=== PATIENT | female | born 1975 | race Caucasian/White ===

== ENCOUNTER 2016-12-06 09:41 | Emergency (ER) | payer SELFPAY ==
--- NOTE | 2016-12-06 10:27 | ER Document Report ---
ED Medical Screen (RME) - General Chief Complaint: Abdominal Pain Stated Complaint: ABDOMINAL PAIN Notes: Patient presents at 8 months of progressively worsening right lower abdominal pain and right flank pain. Notes intermittent vaginal bleeding. No history of similar symptoms prior to last a month. She has not seen her primary doctor regarding today's concerns. Denies any associated nausea, vomiting or diaphoresis. No diarrhea. She is status post tubal ligation and has had an ovarian cyst removed on her left side of the past I have greeted and performed a rapid initial assessment of this patient. A comprehensive ED assessment and evaluation of the patient, analysis of test results and completion of medical decision making process will be conducted by an additional ED providers. TRAVEL OUTSIDE OF THE [place] IN LAST 30 DAYS: No - Related Data Allergies/Adverse Reactions: No Known Allergies Allergy (Verified 12/06/16 09:55) Past Medical History - Social History Frequency of alcohol use: Occasional Drug Abuse: None Renal/ Medical History: Reports: Hx Kidney Stones, Hx Ovarian Cysts - x1 right sided. Denies: Hx Peritoneal Dialysis Past Surgical History: Reports: Hx Gynecologic Surgery - ovarian cyst, Hx Tubal Ligation - Immunizations Immunizations up to date: Yes Hx Diphtheria, Pertussis, Tetanus Vaccination: Yes Physical Exam - Vital signs Vitals: Temp Pulse Resp BP Pulse Ox 98.1 F 110 H 18 151/83 H 100 12/06/16 09:54 12/06/16 09:54 12/06/16 09:54 12/06/16 09:54 12/06/16 09:54 Notes: PHYSICAL EXAMINATION: GENERAL: Well-appearing, well-nourished and in no acute distress. HEAD: Atraumatic, normocephalic. EYES: sclera anicteric, conjunctiva are normal. ENT: Moist mucous membranes. NECK: Normal range of motion LUNGS: Normal work of breathing HEART: 2+ radial pulses bilaterally EXTREMITIES: no pitting or edema. No cyanosis. NEUROLOGICAL: No focal neurological deficits. Moves all extremities spontaneously and on command. PSYCH: Normal mood, normal affect. SKIN: Warm, Dry, normal turgor, no rashes or lesions noted. Course - Vital Signs Vital signs: Temp Pulse Resp BP Pulse Ox 98.1 F 110 H 18 151/83 H 100 12/06/16 09:54 12/06/16 09:54 12/06/16 09:54 12/06/16 09:54 12/06/16 09:54
[2016-12-06 11:02] LABS: HEMATOCRIT 37.4 % (36.0-47.0); HEMOGLOBIN 12.4 g/dL (12.0-15.5); HGB HCT DIFFERENCE -0.2; MEAN CORPUSCULAR HEMOGLOBIN 26.7 pg (27.0-33.4); MEAN CORPUSCULAR HGB CONC 33.2 g/dL (32.0-36.0); MEAN CORPUSCULAR VOLUME 81 fl (80-97); RED BLOOD COUNT 4.64 10^6/uL (3.72-5.28); RED CELL DISTRIBUTION WIDTH 14.9 % (11.5-14.0); WHITE BLOOD COUNT 7.8 10^3/uL (4.0-10.5)
[2016-12-06 11:22] LABS: ALANINE AMINOTRANSFERASE 20 U/L (9-52); ALBUMIN 4.4 g/dL (3.5-5.0); ALKALINE PHOSPHATASE 70 U/L (38-126); ANION GAP 12 (5-19); ASPARTATE AMINO TRANSFERASE 25 U/L (14-36); BILIRUBIN,DIRECT 0.3 mg/dL (0.0-0.4); BILIRUBIN,TOTAL 1.2 mg/dL (0.2-1.3); BLOOD UREA NITROGEN 12 mg/dL (7-20); CALCIUM 9.4 mg/dL (8.4-10.2); CARBON DIOXIDE 25 mmol/L (22-30); CHLORIDE 103 mmol/L (98-107); CREATININE RESULT 0.85 mg/dL (0.52-1.25); GLUCOSE 102 mg/dL (75-110); POTASSIUM 4.2 mmol/L (3.6-5.0); SODIUM 140.3 mmol/L (137-145); TOTAL PROTEIN 7.7 g/dL (6.3-8.2)
[2016-12-06] MEDS ORDERED: LIDOCAINE 5% (700 MG) TRANSDERMAL ADH..PATCH TP ONE (11:59)
[2016-12-06] MEDS ORDERED: DICYCLOMINE HCL 20 MG TABLET PO ONE (11:59)
--- NOTE | 2016-12-06 12:24 | ER Document Report ---
ED General - General Chief Complaint: Abdominal Pain Stated Complaint: ABDOMINAL PAIN TRAVEL OUTSIDE OF THE [place] IN LAST 30 DAYS: No - HPI Patient complains to provider of: abdominal pain Notes: Patient coming in for left lower quadrant abdominal pain ongoing for approximately last 8 months. Patient has also had intermittent vaginal bleeding. Patient states that the to do seem to correlate that she'll have pain and later have vaginal bleeding. Patient states she is to have an HEART NURSE however does not have one at this time. Patient denies any trauma denies any fevers chills nausea vomiting diarrhea. - Related Data Allergies/Adverse Reactions: No Known Allergies Allergy (Verified 12/06/16 09:55) Past Medical History - Social History Smoking Status: Never Smoker Frequency of alcohol use: Occasional Drug Abuse: None Family History: Reviewed & Not Pertinent Patient has suicidal ideation: No Patient has homicidal ideation: No Renal/ Medical History: Reports: Hx Kidney Stones, Hx Ovarian Cysts - x1 right sided. Denies: Hx Peritoneal Dialysis Past Surgical History: Reports: Hx Gynecologic Surgery - ovarian cyst, Hx Tubal Ligation - Immunizations Immunizations up to date: Yes Hx Diphtheria, Pertussis, Tetanus Vaccination: Yes Review of Systems - Review of Systems Constitutional: No symptoms reported EENT: No symptoms reported Cardiovascular: No symptoms reported Respiratory: No symptoms reported Gastrointestinal: Abdominal pain Genitourinary: No symptoms reported Female Genitourinary: No symptoms reported Musculoskeletal: No symptoms reported Skin: No symptoms reported Hematologic/Lymphatic: No symptoms reported Neurological/Psychological: No symptoms reported Physical Exam - Vital signs Vitals: Temp Pulse Resp BP Pulse Ox 98.1 F 110 H 18 151/83 H 100 12/06/16 09:54 12/06/16 09:54 12/06/16 09:54 12/06/16 09:54 12/06/16 09:54 Interpretation: Normal - General General appearance: Appears well, Alert - HEENT Head: Normocephalic, Atraumatic Eyes: Normal Pupils: PERRL - Respiratory Respiratory status: No respiratory distress Chest status: Nontender Breath sounds: Normal Chest palpation: Normal - Cardiovascular Rhythm: Regular Heart sounds: Normal auscultation Murmur: No - Abdominal Inspection: Normal Distension: No distension Bowel sounds: Normal Tenderness: Nontender Organomegaly: No organomegaly - Back Back: Normal, Nontender - Extremities General upper extremity: Normal inspection, Nontender, Normal color, Normal ROM , Normal temperature General lower extremity: Normal inspection, Nontender, Normal color, Normal ROM , Normal temperature, Normal weight bearing. No: Krystle's sign - Neurological Neuro grossly intact: Yes Cognition: Normal Orientation: AAOx4 [place] Coma Scale Eye Opening: Spontaneous [place] Coma Scale Verbal: Oriented [place] Coma Scale Motor: Obeys Commands Me[place]io Coma Scale Total: 15 Speech: Normal Motor strength normal: LUE, RUE, LLE, RLE Sensory: Normal - Psychological Associated symptoms: Normal affect, Normal mood - Skin Skin Temperature: Warm Skin Moisture: Dry Skin Color: Normal Course - Re-evaluation Re-evalutation: 12/06/16 15:19 : The patient presents with abdominal pain without signs of peritonitis or other life-threatening or serious etiology. The patient appears stable for discharge and has been instructed to return immediately if the symptoms worsen in any way, or in 8-12hr if not improved for re-evaluation. The patient has been instructed to return if the symptoms worsen or change in any way.. - Vital Signs Vital signs: Temp Pulse Resp BP Pulse Ox 97.7 F 65 16 114/83 100 12/06/16 13:39 12/06/16 13:39 12/06/16 13:39 12/06/16 13:39 12/06/16 13:39 - Laboratory Result Diagrams: 12/06/16 10:40 12/06/16 10:40 Laboratory results interpreted by me: 12/06/16 12/06/16 10:40 10:42 MCH 26.7 L RDW 14.9 H Lipase 331.2 H Discharge - Discharge Clinical Impression: Abdominal pain Qualifiers: Abdominal location: unspecified location Qualified Code(s): R10.9 - Unspecified abdominal pain Condition: Good Disposition: HOME, SELF-CARE Instructions: Abdominal Pain ([facility]), [employer] Doctors Additional Instructions: Take medication as prescribed. If he did receive good pain relief with the Lidoderm patch and ask her pharmacist about [id number] option. Prescriptions: Dicyclomine HCl [Bentyl 20 mg Tablet] 20 mg PO QID PRN #20 tablet PRN Reason: Forms: Return to Work
[2016-12-06 13:41] VITALS: BP 114/83
== END 2016-12-06 13:42 | disposition home or self-care (01) ==
LOC: ER 09:41
DX: R10.32 Left lower quadrant pain (principal); N93.9 Abnormal uterine and vaginal bleeding, unspecified; Z87.442 Personal history of urinary calculi; Z87.42 Personal history of other diseases of the female genital tract; Z98.51 Tubal ligation status
CPT/HCPCS: 99284; 36415; 83690; 84703; 85027; 80053; J3490

== ENCOUNTER 2016-12-07 06:23 | Emergency (ER) | payer SELFPAY ==
[2016-12-07] MEDS ORDERED: HYDROCODONE/ACETAMINOPHEN 5-325 MG TABLET PO ONE (06:50)
[2016-12-07] MEDS ORDERED: ONDANSETRON 4 MG TAB.RAPDIS PO ONE (06:50)
--- NOTE | 2016-12-07 06:51 | ER Document Report ---
ED General - General Chief Complaint: Abdominal Pain Stated Complaint: ABDOMINAL PAIN Mode of Arrival: Ambulatory Information source: Patient Notes: 41-year-old female presents with complaints of left lower quadrant abdominal pain intermittently over the past 8 months. Patient notes she was seen here yesterday have blood work performed. Patient admits to history of ovarian cysts. Patient also admits to diarrhea as well as vaginal bleeding TRAVEL OUTSIDE OF THE [place] IN LAST 30 DAYS: No - HPI Onset: Other Onset/Duration: Intermittent Quality of pain: Achy Severity: Mild Pain Level: 1 Associated symptoms: Diarrhea, Other Exacerbated by: Denies Relieved by: Denies Similar symptoms previously: Yes Recently seen / treated by doctor: Yes - Related Data Allergies/Adverse Reactions: No Known Allergies Allergy (Verified 12/07/16 06:28) Past Medical History - Social History Smoking Status: Never Smoker Cigarette use (# per day): No Chew tobacco use (# tins/day): No Smoking Education Provided: No Family History: Reviewed & Not Pertinent Renal/ Medical History: Reports: Hx Kidney Stones, Hx Ovarian Cysts - x1 right sided, Hx Peritoneal Dialysis Past Surgical History: Reports: Hx Gynecologic Surgery - ovarian cyst, Hx Tubal Ligation - Immunizations Immunizations up to date: Yes Hx Diphtheria, Pertussis, Tetanus Vaccination: Yes Review of Systems - Review of Systems Notes: REVIEW OF SYSTEMS: CONSTITUTIONAL : Denies fever, chills, or sweats. Denies recent illness. EENT: Denies eye, ear, throat, or mouth pain or symptoms. Denies nasal or sinus congestion or discharge. Denies throat, tongue, or mouth swelling or difficulty swallowing. CARDIOVASCULAR: Denies chest pain. Denies palpitations or racing or irregular heart beat. Denies ankle edema. RESPIRATORY: Denies cough, cold, or chest congestion. Denies shortness of breath, difficulty breathing, or wheezing. GASTROINTESTINAL: admits ot diarrhea, llq pain GENITOURINARY: Denies difficulty urinating, painful urination, burning, frequency, blood in urine, or discharge. FEMALE GENITOURINARY: Admits to vaginal bleeding. MUSCULOSKELETAL: Denies back or neck pain or stiffness. Denies joint pain or swelling. SKIN: Denies rash, lesions or sores. HEMATOLOGIC : Denies easy bruising or bleeding. LYMPHATIC: Denies swollen, enlarged glands. NEUROLOGICAL: Denies confusion or altered mental status. Denies passing out or loss of consciousness. Denies dizziness or lightheadedness. Denies headache. Denies weakness or paralysis or loss of use of either side. Denies problems with gait or speech. Denies sensory loss, numbness, or tingling. Denies seizures. PSYCHIATRIC: Denies anxiety or stress. Denies depression, suicidal ideation, or homicidal ideation. ALL OTHER SYSTEMS REVIEWED AND NEGATIVE. Dictation was performed using [employer] voice recognition software PHYSICAL EXAMINATION: GENERAL: Well-appearing, well-nourished and in no acute distress. HEAD: Atraumatic, normocephalic. EYES: Pupils equal round and reactive to light, extraocular movements intact, conjunctiva are normal. ENT: Nares patent, oropharynx clear without exudates. Moist mucous membranes. NECK: Normal range of motion, supple without lymphadenopathy LUNGS: Breath sounds clear to auscultation bilaterally and equal. No wheezes rales or rhonchi. HEART: Regular rate and rhythm without murmurs ABDOMEN: Mild tenderness left lower quadrant Female : deferred Musculoskeletal: Normal range of motion, no pitting or edema. No cyanosis. NEUROLOGICAL: Cranial nerves grossly intact. Normal speech, normal gait. Normal sensory, motor exams PSYCH: Normal mood, normal affect. SKIN: Warm, Dry, normal turgor, no rashes or lesions noted. Physical Exam - Vital signs Vitals: Temp Pulse Resp BP Pulse Ox 97.3 F 71 21 H 118/96 H 100 12/07/16 06:29 12/07/16 06:29 12/07/16 06:29 12/07/16 06:29 12/07/16 06:29 Course - Re-evaluation Re-evalutation: 12/07/16 06:58 Patient's lab work from yesterday noted mild lipase elevation however patient's pain is in the left lower quadrant, left upper, CT has been ordered, urinalysis is pending 12/07/16 08:30 CT is consistent with colitis, I will give the patient antibiotics and follow- up with GI After performing a Medical Screening Examination, I estimate there is LOW risk for ACUTE APPENDICITIS, BOWEL OBSTRUCTION, ACUTE CHOLECYSTITIS, PERFORATED DIVERTICULITIS, INCARCERATED HERNIA, PANCREATITIS, PELVIC INFLAMMATORY DISEASE, PERFORATED ULCER, ECTOPIC , or TUBO-OVARIAN ABSCESS, thus I consider the discharge disposition reasonable. Also, there is no evidence or peritonitis , sepsis, or toxicity. I have reevaluated this patient multiple times and no significant life threatening changes are noted. The patient and I have discussed the diagnosis and risks, and we agree with discharging home with close follow-up with the understanding that symptoms and presentations can change. We also discussed returning to the Emergency Department immediately if new or worsening symptoms occur. We have discussed the symptoms which are most concerning (e.g., bloody stool, fever, changing or worsening pain, vomiting) that necessitate immediate return. - Vital Signs Vital signs: Temp Pulse Resp BP Pulse Ox 97.3 F 73 21 H 118/96 H 100 12/07/16 06:29 12/07/16 06:29 12/07/16 06:29 12/07/16 06:29 12/07/16 06:29 - Laboratory Result Diagrams: 12/07/16 06:55 12/07/16 06:55 Laboratory results interpreted by me: 12/07/16 12/07/16 06:55 06:55 WBC 11.0 H MCH 26.7 L RDW 14.8 H Seg Neutrophils % 92.7 H Lymphocytes % 5.1 L Monocytes % 2.0 L Absolute Neutrophils 10.2 H Carbon Dioxide 20 L Glucose 180 H - Diagnostic Test Radiology reviewed: Image reviewed, Reports reviewed Discharge - Discharge Clinical Impression: Colitis Abdominal pain Qualifiers: Abdominal location: unspecified location Qualified Code(s): R10.9 - Unspecified abdominal pain Diarrhea Qualifiers: Diarrhea type: unspecified type Qualified Code(s): R19.7 - Diarrhea, unspecified Condition: Stable Disposition: HOME, SELF-CARE Instructions: Colitis, Nonspecific ([facility]) Prescriptions: Ciprofloxacin HCl [Cipro 500 mg Tablet] 500 mg PO BID #20 tablet Hydrocodone/Acetaminophen [[place] 5-325 mg Tablet] 1 tab PO Q6 #14 tablet Ondansetron [Zofran Odt 4 mg Tablet] 1 - 2 tab PO Q4H PRN #15 tab.rapdis PRN Reason: For Nausea/Vomiting Referrals: [facility] [Provider Group] - Follow up tomorrow SARINA IVERSON MD [ACTIVE STAFF] - Follow up tomorrow
[2016-12-07 07:07] LABS: ABSOLUTE LYMPHOCYTES (AUTO) 0.6 10^3/uL (0.5-4.7); ABSOLUTE MONOCYTES (AUTO) 0.2 10^3/uL (0.1-1.4); ABSOLUTE NEUT (AUTO) 10.2 10^3/uL (1.7-8.2); BASOPHILS % (AUTO) 0.2 % (0-2); HEMATOCRIT 37.7 % (36.0-47.0); HEMOGLOBIN 12.3 g/dL (12.0-15.5); HGB HCT DIFFERENCE -0.8; LYMPHOCYTES % (AUTO) 5.1 % (13-45); MEAN CORPUSCULAR HEMOGLOBIN 26.7 pg (27.0-33.4); MEAN CORPUSCULAR HGB CONC 32.7 g/dL (32.0-36.0); MEAN CORPUSCULAR VOLUME 82 fl (80-97); RED BLOOD COUNT 4.63 10^6/uL (3.72-5.28); RED CELL DISTRIBUTION WIDTH 14.8 % (11.5-14.0); SEGMENTED NEUTROPHILS % (AUTO) 92.7 % (42-78)
[2016-12-07 07:19] LABS: ALANINE AMINOTRANSFERASE 22 U/L (9-52); ALBUMIN 4.7 g/dL (3.5-5.0); ALKALINE PHOSPHATASE 82 U/L (38-126); ANION GAP 16 (5-19); ASPARTATE AMINO TRANSFERASE 22 U/L (14-36); BILIRUBIN,DIRECT 0.3 mg/dL (0.0-0.4); BILIRUBIN,TOTAL 0.9 mg/dL (0.2-1.3); BLOOD UREA NITROGEN 12 mg/dL (7-20); CALCIUM 9.6 mg/dL (8.4-10.2); CARBON DIOXIDE 20 mmol/L (22-30); CHLORIDE 105 mmol/L (98-107); CREATININE RESULT 0.65 mg/dL (0.52-1.25); GLUCOSE 180 mg/dL (75-110); LIPASE 54.1 U/L (23-300); POTASSIUM 3.9 mmol/L (3.6-5.0); SODIUM 140.8 mmol/L (137-145); TOTAL PROTEIN 7.8 g/dL (6.3-8.2)
[2016-12-07] MEDS ORDERED: METOCLOPRAMIDE HCL 10 MG TABLET PO ONE (08:29)
[2016-12-07 08:55] LABS: APPEARANCE,URINE SLIGHTLY-CLOUDY; BILIRUBIN,URINE NEGATIVE (NEGATIVE); GLUCOSE, URINE NEGATIVE (NEGATIVE); KETONES,URINE 80 mg/dL (NEGATIVE); LEUKOCYTE ESTERASE,URINE SMALL (NEGATIVE); NITRITE,URINE NEGATIVE (NEGATIVE); PROTEIN,URINE 100 mg/dL (NEGATIVE); URINE SPECIFIC GRAVITY 1.026; UROBILINOGEN,URINE NEGATIVE mg/dL (<2.0)
[2016-12-07 08:59] VITALS: BP 126/74
== END 2016-12-07 08:55 | disposition home or self-care (01) ==
LOC: ER 06:23
DX: K52.9 Noninfective gastroenteritis and colitis, unspecified (principal); R10.32 Left lower quadrant pain; N93.9 Abnormal uterine and vaginal bleeding, unspecified; Z87.42 Personal history of other diseases of the female genital tract; Z87.442 Personal history of urinary calculi; Z98.51 Tubal ligation status
CPT/HCPCS: 99284; 36415; 83690; 85025; 80053; 81001; 76380; S0119

== ENCOUNTER 2016-12-26 12:32 | Emergency (ER) | payer MEDICAID ==
--- NOTE | 2016-12-26 13:35 | ER Document Report ---
HPI - HPI Patient complains to provider of: Left knee pain Onset: Last week Onset/Duration: Persistent Quality of pain: Throbbing Severity: Moderate Pain Level: 4 Context: Patient states she has had problems with her left knee in the past. No recent injury. Complains of pain, swelling and having to limp due to the pain. Associated Symptoms: None Exacerbated by: Movement, Walking Relieved by: Denies Similar symptoms previously: Yes Recently seen / treated by doctor: No - ROS ROS below otherwise negative: Yes Systems Reviewed and Negative: Yes All other systems reviewed and negative - CONSTITUTIONAL Constitutional: DENIES: Fever - EENT EENT: DENIES: Sore Throat - NEURO Neurology: DENIES: Headache - CARDIOVASCULAR Cardiovascular: DENIES: Chest pain - RESPIRATORY Respiratory: DENIES: Trouble Breathing - GASTROINTESTINAL Gastrointestinal: DENIES: Abdominal Pain - URINARY Urinary: DENIES: Dysuria - REPRODUCTIVE Reproductive: DENIES: : - MUSCULOSKELETAL Musculoskeletal: REPORTS: Extremity pain - left Knee - DERM Skin Color: Normal Skin Problems: None Past Medical History - General Information source: Patient - Social History Smoking Status: Never Smoker Frequency of alcohol use: Occasional Drug Abuse: None Lives with: Family Family History: Reviewed & Not Pertinent Patient has suicidal ideation: No Patient has homicidal ideation: No Renal/ Medical History: Reports: Hx Kidney Stones, Hx Ovarian Cysts - x1 right sided Past Surgical History: Reports: Hx Gynecologic Surgery - ovarian cyst, Hx Tubal Ligation - Immunizations Immunizations up to date: Yes Hx Diphtheria, Pertussis, Tetanus Vaccination: Yes Vertical Provider Document - CONSTITUTIONAL Agree With Documented VS: Yes Exam Limitations: No Limitations General Appearance: WD/WN, No Apparent Distress - INFECTION CONTROL TRAVEL OUTSIDE OF THE [place] IN LAST 30 DAYS: No - HEENT HEENT: Atraumatic, Normocephalic - RESPIRATORY Respiratory: Breath Sounds Normal, No Respiratory Distress O2 Sat by Pulse Oximetry: 100 - CARDIOVASCULAR Cardiovascular: Regular Rate, Regular Rhythm - MUSCULOSKELETAL/EXTREMETIES Musculoskeletal/Extremeties: Tender - medial and lateral left knee, mild edema to knee. No redness or warmth, Edema - NEURO Level of Consciousness: Awake, Alert, Appropriate - DERM Integumentary: Warm, Dry, No Rash Course - Re-evaluation Re-evalutation: 12/26/16 14:30 X-rays negative and discussed with patient - Vital Signs Vital signs: Temp Pulse Resp BP Pulse Ox 98.2 F 92 16 121/76 100 12/26/16 12:57 12/26/16 12:57 12/26/16 12:57 12/26/16 12:57 12/26/16 12:57 Procedures - Immobilization Left Knee Pre-Proc Neuro Vasc Exam: Normal Immobilizer type: Ray wrap Performed by: PCT Post-Proc Neuro Vasc Exam: Normal Alignment checked and good: Yes Discharge - Discharge Clinical Impression: Left knee pain Qualifiers: Chronicity: acute Qualified Code(s): M25.562 - Pain in left knee Condition: Good Disposition: HOME, SELF-CARE Instructions: Ice & Elevation ([facility]) Additional Instructions: meds as prescribed ice and elevate follow up with your doctor if not better one week return as needed. Prescriptions: Hydrocodone/Acetaminophen [[place] 5-325 mg Tablet] 1 tab PO PRN PRN #5 tablet PRN Reason: Naproxen 500 mg PO BID #20 tablet Forms: Return to Work
--- NOTE | 2016-12-26 14:24 | RADIOLOGY REPORT (SQ) ---
EXAM DESCRIPTION: KNEE LEFT 4 VIEW COMPLETED DATE/TIME: 12/26/2016 2:13 pm REASON FOR STUDY: pain COMPARISON: None. NUMBER OF VIEWS: Three views. TECHNIQUE: AP, lateral, and both oblique radiographic images acquired of the left knee. LIMITATIONS: None. FINDINGS: MINERALIZATION: Normal. BONES: No acute fracture or dislocation. No worrisome bone lesions. JOINT: No effusion. SOFT TISSUES: No soft tissue swelling. No radio-opaque foreign body. OTHER: No other significant finding. IMPRESSION: NEGATIVE STUDY OF THE LEFT KNEE. NO RADIOGRAPHIC EVIDENCE OF ACUTE INJURY. TECHNICAL DOCUMENTATION: JOB ID: [id number] [employer]- All Rights Reserved
[2016-12-26 14:46] VITALS: BP 122/70
== END 2016-12-26 14:46 | disposition home or self-care (01) ==
LOC: ER 12:32
DX: M25.562 Pain in left knee (principal); M79.89 Other specified soft tissue disorders
CPT/HCPCS: 99283

== ENCOUNTER 2017-02-18 09:43 | Day surgery (SDC) | payer MEDICAID ==
[~2017-02-18 09:43] MED LIST: DIPHENHYDRAMINE HCL 50 MG/ML VIAL ONE; EPINEPHRINE INJ 1 MG/10 ML DISP.SYRIN ONE; FLUMAZENIL INJ 0.5 MG/5 ML VIAL IV ONE; GLUCAGON,HUMAN RECOMB 1 MG INJ ONE; NALOXONE HCL INJ/PF 0.4 MG/1 ML SDV ONE; ONDANSETRON HCL INJ/PF 4 MG/2 ML SDV ONE
[2017-02-18] MEDS: MIDAZOLAM 2 MG/2 ML INJ ONE ×3 (10:18→10:29)
[2017-02-18] MEDS: FENTANYL CITRATE INJ/PF 100 MCG/2 ML AMPUL ONE ×4 (10:20→10:33)
--- NOTE | 2017-02-18 10:43 | Operative Report ---
Operative Report DATE OF SURGERY: 02/18/17 Operative Report: The risks, benefits and alternatives of the procedure including risks of bleeding, perforation requiring surgery are explained to the patient detail and informed consent was obtained. Patient was taken back to the endoscopy suite and placed in the left, lateral decubital position. Timeout was called. Conscious sedation medications are provided. A rectal examination is done which did not reveal any masses, tears or fissures. An Olympus video scope was inserted into the patient's rectum. It is then carefully guided all the way to the cecum. The cecum was identified by the usual anatomical landmarks including the ileocecal valve as well as the appendiceal office. Prep was good. Photodocumentation was obtained. Patient has a somewhat redundant colon. The scope was then sequentially pulled back via the rest segments of the colon including the ascending colon, hepatic flexure, transverse colon, splenic flexure, descending colon and finding to the rectosigmoid portions of the colon. Retroflexion maneuver was performed. PREOPERATIVE DIAGNOSIS: Family history of colorectal cancer POSTOPERATIVE DIAGNOSIS: Normal screening colonoscopy OPERATION: Colonoscopy diagnostic SURGEON: DAQUAN BOCANEGRA ANESTHESIA: Moderate Sedation - 6 mg of Versed, 150 mcg of fentanyl. Conscious sedation monitoring time 30 minutes. TISSUE REMOVED OR ALTERED: As described above. COMPLICATIONS: None. ESTIMATED BLOOD LOSS: None. INTRAOPERATIVE FINDINGS: As described above. PROCEDURE: Patient tolerated procedure well. No postprocedure complications are noted. Patient discharged in good condition. Discharge date 02/18/2017. Discharge diet: Regular. Discharge activity: Regular. Patient is instructed to call the office or proceed to the emergency room should there be any further problems or questions. 5 year surveillance colonoscopy.
[2017-02-18 11:47] VITALS: BP 114/79
== END 2017-02-18 11:52 | disposition home or self-care (01) ==
LOC: END 09:43
PROVIDERS: ATTEND Internal Medicine Gastroenterology
PROC: 0DJD8ZZ Inspection of Lower Intestinal Tract, Via Natural or Artificial Opening Endoscopic (ICD-10-PCS; principal; 2017-02-18 10:00)
DX: Z80.0 Family history of malignant neoplasm of digestive organs (principal); R10.32 Left lower quadrant pain; R93.8 Abnormal findings on diagnostic imaging of other specified body structures; Z79.899 Other long term (current) drug therapy
CPT/HCPCS: 45378; J2250; J3010; J0171; J1200; J1610; J2310; J2405; J3490

== ENCOUNTER 2017-10-29 11:05 | Emergency (ER) | payer SELFPAY ==
--- NOTE | 2017-10-29 12:10 | ER Document Report ---
ED General - General Chief Complaint: Toothache Stated Complaint: TOOTH PAIN Time Seen by Provider: 10/29/17 12:08 Mode of Arrival: Ambulatory Information source: Patient Notes: Patient is a 42-year-old female who presents with right lower toothache with associated facial swelling that started yesterday. She did take a Percocet that she had previously with minimal relief of her pain. She denies any fever, chills, drainage, difficulty swallowing, difficulty breathing. She has not seen a dentist for this. TRAVEL OUTSIDE OF THE [place] IN LAST 30 DAYS: No - Related Data Allergies/Adverse Reactions: No Known Allergies Allergy (Verified 10/29/17 11:06) Past Medical History - General Information source: Patient - Social History Smoking Status: Never Smoker Chew tobacco use (# tins/day): No Frequency of alcohol use: Occasional Drug Abuse: None Family History: Reviewed & Not Pertinent Patient has suicidal ideation: No Patient has homicidal ideation: No - Past Medical History Cardiac Medical History: Denies: Hx Coronary Artery Disease, Hx Heart Attack, Hx Hypertension Pulmonary Medical History: Denies: Hx Asthma, Hx Bronchitis, Hx COPD, Hx Pneumonia Neurological Medical History: Denies: Hx Cerebrovascular Accident, Hx Seizures Renal/ Medical History: Reports: Hx Kidney Stones, Hx Ovarian Cysts - x1 right sided. Denies: Hx Peritoneal Dialysis Musculoskeltal Medical History: Denies Hx Arthritis Past Surgical History: Reports: Hx Gynecologic Surgery - ovarian cyst, Hx Orthopedic Surgery - left knee, Hx Tubal Ligation. Denies: Hx Hysterectomy - Immunizations Immunizations up to date: Yes Hx Diphtheria, Pertussis, Tetanus Vaccination: Yes Review of Systems - Review of Systems Constitutional: See HPI EENT: See HPI Cardiovascular: No symptoms reported Respiratory: No symptoms reported Gastrointestinal: No symptoms reported Genitourinary: No symptoms reported Female Genitourinary: No symptoms reported Musculoskeletal: No symptoms reported Skin: No symptoms reported Hematologic/Lymphatic: No symptoms reported Neurological/Psychological: No symptoms reported Physical Exam - Vital signs Vitals: Temp Pulse Resp BP Pulse Ox 98.5 F 77 18 122/75 98 10/29/17 11:13 10/29/17 11:13 10/29/17 11:13 10/29/17 11:13 10/29/17 11:13 - Notes Notes: PHYSICAL EXAM: CONSTITUTIONAL: Alert and oriented, well-appearing and in no acute distress. Speaking in full sentences and tolerating her secretions. HENT: Normocephalic, atraumatic. Dental caries noted to tooth #30 and 31. No palpable area of induration or fluctuance to gingival buccal mucosa. Right lower facial swelling noted airway patent. Oropharynx clear without erythema, tonsilar exudate or malocclusion. Trachea midline. Uvula midline. Moist mucous membranes. EYES: Pupils equal round and reactive to light, EOM intact. Sclera anicteric, conjunctiva are normal. No entrapment. NECK: supple without lymphadenopathy. No midline tenderness or paraspinous muscle spasms. No step-offs or deformities. ROM intact. Negative Kernig's and negative Brudzinski's. HEART: Regular rate and rhythm without murmurs. LUNGS: CTAB and equal. No wheezes, rales or rhonchi. EXTREMITIES: no bony tenderness, erythema, edema, ecchymosis or deformity. Normal range of motion, no pitting edema. No cyanosis. Cap Refill <3 seconds. NEURO: Cranial nerves grossly intact. Normal sensory/motor exams. PSYCH: Normal mood, normal affect. SKIN: Warm and dry. Normal turgor. No rashes or lesions noted. Course - Re-evaluation Re-evalutation: 10/29/17 12:10 Patient seen and examined. VSS, NAD, well hydrated and well appearing. Facial swelling to right lower jaw but buccal mucosa and gingival mucosa reveals no palpable area of fluctuance or induration indicating pocket of abscess for drainage. No respiratory distress, patient is tolerating her own secretions. Will treat with antibiotics and pain medication and advised to follow up with dentist. Given return precautions. Low suspicion at this time for Reginald's angina, respiratory compromise, deep space infection or other emergent conditions at this time. At this time, will discharge with return precautions and follow-up recommendations. Verbal discharge instructions given at the bedside and opportunity for questions given. Medication warnings reviewed. Patient is in agreement with this plan and has verbalized understanding of return precautions and the need for primary care follow-up in the next 24-72 hours. - Vital Signs Vital signs: Temp Pulse Resp BP Pulse Ox 98.3 F 80 18 118/71 98 10/29/17 13:53 10/29/17 13:53 10/29/17 13:53 10/29/17 13:53 10/29/17 13:53 Discharge - Discharge Clinical Impression: Dental infection, Toothache Condition: Stable Disposition: HOME, SELF-CARE Instructions: [facility] Additional Instructions: TOOTHACHE: Your pain is due to dental decay. The tooth must be repaired in order for you to feel better. You will, therefore, be referred to a dentist. We do not have dentists on the staff at [facility]. Severe swelling or drainage around a tooth usually means a dental abscess. This also requires evaluation and treatment by the dentist, but antibiotics may be prescribed while awaiting dental treatment. You should be rechecked immediately if you develop major swelling of the face, increasing pain, a lump in the jaw or gums, headache, difficulty swallowing, or fever. ORAL NARCOTIC MEDICATION: You have been given a prescription for pain control. This medication is a narcotic. It's best taken with food, as nausea can result if taken on an empty stomach. Don't operate machinery or drive within six hours of taking this medication. Do not combine this medicine with alcohol, or with any medication which can cause sedation (such as cold tablets or sleeping pills) unless you get permission from the physician. Narcotics tend to cause constipation. If possible, drink plenty of fluids and eat a diet high in fiber and fruits. Please be aware that prescription narcotics also have the potential for abuse. People become addicted to these medications because of the general sense of wellbeing that they induce. This feeling along with a significant reduction in tension, anxiety, and aggression provides a stimulating seductive quality to these drugs. Once your pain is under control, we encourage you to discard your unused narcotics. PENICILLIN V K: You have been given a prescription for Penicillin VK. Your physician has determined that this is the best antibiotic for your condition. Pen VK can be taken with meals, however more of the antibiotic gets into the bloodstream if it's taken on an empty stomach. Penicillin usually has no side effects. However, allergy to penicillins is common. If you have had an allergic reaction to any drug of the penicillin family, you should never take any other penicillin. Notify your doctor at once if you develop hives, itching, swelling, faintness, or shortness of breath. FOLLOW-UP CARE: You have been referred for follow-up care to the dentists listed below. Call the dentists office for an appointment as you were instructed or within the next two days. If you experience worsening or a significant change in your symptoms, notify the physician immediately or return to the Emergency Department at any time for re-evaluation. [facility] [address] [place], [place] Miki mornings, by appointment [facility] [address] [place] [address] [facility] [address] [facility] [address] [facility] [address] [facility] [address] [facility] [email or web address] [address] [place] [address] [phone] Thursday- 8:00am to 5:00 pm Will see patients from other [facility]. Charges based on income and family size and accepts Medicare, Medicaid, and Insurances Will pull molars [facility] [id number] Hours of Operation 8:00 am - 4:30 pm weekdays The following dental offices accept Medicaid: [facility] Dr. Gutiérrez Dr. Hackett Dr. Ma Dr. Soto Erick Barraza [place], and [facility] oral surgery Dr. Vela ([place]) Dr. Shi ([place] Bates) [facility] Drs. Vizcaino and Augustine ([place]) Dr. Coley ([place]) [facility] Dr. Bone ([place]) Drs. Romero and ([place]) Medicaid Care Line Dental Infection or Abscess You have an infection, perhaps an abscess (pus formation) of the gum around one of your teeth, which is probably decayed. If there is an abscess, it may drain on its own or it may need to be opened or lanced. Severe swelling or drainage around a tooth usually means a deep dental abscess which usually requires evaluation and treatment by a dentist or oral surgeon. Antibiotics may be prescribed while awaiting dental treatment. If you develop high fever with chills, worsening pain, or increasing swelling in the area, see a dentist or oral surgeon immediately or return to the Emergency Department immediately. Prescriptions: Hydrocodone/Acetaminophen [Vicodin 5-300 mg Tablet] 1 tab PO ASDIR PRN #12 tab PRN Reason: Penicillin V Potassium [Penicillin Vk 500 mg Tablet] 500 mg PO BID #20 tablet Forms: Return to Work
[2017-10-29 13:57] VITALS: BP 118/71
== END 2017-10-29 13:56 | disposition home or self-care (01) ==
LOC: ER 11:05
DX: K04.7 Periapical abscess without sinus (principal); K02.9 Dental caries, unspecified; R22.0 Localized swelling, mass and lump, head; K08.89 Other specified disorders of teeth and supporting structures
CPT/HCPCS: 99282

== ENCOUNTER 2018-04-20 14:26 | Emergency (ER) | payer SELFPAY ==
[2018-04-20] MEDS ORDERED: FENTANYL CITRATE INJ/PF 100 MCG/2 ML AMPUL IV ONE (15:42)
[2018-04-20] MEDS ORDERED: ONDANSETRON HCL INJ/PF 4 MG/2 ML SDV IV ONE ×2 (15:42→18:59)
[2018-04-20] MEDS ORDERED: NORMAL SALINE 1000 ML 1,000 ML IV ONE (15:42)
[2018-04-20] MEDS ORDERED: KETOROLAC TROMETHAMINE INJ/PF 30 MG/1 ML SDV IV ONE (15:42)
[2018-04-20] MEDS ORDERED: PROMETHAZINE HCL INJ 50 MG/1 ML VIAL IM PRN (15:44)
--- NOTE | 2018-04-20 15:46 | ER Document Report ---
ED Medical Screen (RME) - General Chief Complaint: Abdominal Pain Stated Complaint: ABDOMINAL PAIN, BACK PAIN Time Seen by Provider: 04/20/18 15:42 Notes: 42 years old female presents today with nearly 2 day history of left flank pain radiating to the left lower quadrant associated with nausea. Has no temperature but came in with low temperature of 95. Denies any fever chills or other constitutional symptoms denies any dysuria frequency urgency. Denies any hematuria. Denies any cough or shortness of breath. Appears sick, throwing up. Seems to be in moderate to severe pain. TRAVEL OUTSIDE OF THE [place] IN LAST 30 DAYS: No - Related Data Allergies/Adverse Reactions: No Known Allergies Allergy (Verified 04/20/18 14:29) Past Medical History - Social History Chew tobacco use (# tins/day): No Drug Abuse: None - Past Medical History Cardiac Medical History: Denies: Hx Coronary Artery Disease, Hx Heart Attack, Hx Hypertension Pulmonary Medical History: Denies: Hx Asthma, Hx Bronchitis, Hx COPD, Hx Pneumonia Neurological Medical History: Denies: Hx Cerebrovascular Accident, Hx Seizures Renal/ Medical History: Reports: Hx Kidney Stones, Hx Ovarian Cysts - x1 right sided. Denies: Hx Peritoneal Dialysis Musculoskeltal Medical History: Denies Hx Arthritis Past Surgical History: Reports: Hx Gynecologic Surgery - ovarian cyst, Hx Orthopedic Surgery - left knee, Hx Tubal Ligation. Denies: Hx Hysterectomy - Immunizations Immunizations up to date: Yes Hx Diphtheria, Pertussis, Tetanus Vaccination: Yes Physical Exam - Vital signs Vitals: Temp 95.5 F L 04/20/18 15:25 Course - Vital Signs Vital signs: Temp Pulse Resp BP Pulse Ox 95.5 F L 04/20/18 15:25
[2018-04-20 16:51] LABS: HEMATOCRIT 40.4 % (36.0-47.0); HEMOGLOBIN 13.3 g/dL (12.0-15.5); MEAN CORPUSCULAR HEMOGLOBIN 26.7 pg (27.0-33.4); MEAN CORPUSCULAR VOLUME 81 fl (80-97); PLATELET COUNT 292 10^3/uL (150-450); RED BLOOD COUNT 4.98 10^6/uL (3.72-5.28); RED CELL DISTRIBUTION WIDTH 14.1 % (11.5-14.0); WHITE BLOOD COUNT 22.1 10^3/uL (4.0-10.5)
[2018-04-20] MEDS ORDERED: PIPERACILLIN/TAZOBACTAM 3.375 GM VIAL IV ONE (17:03)
[2018-04-20 17:09] LABS: ABSOLUTE LYMPHOCYTES# (MANUAL) 1.8 10^3/uL (0.5-4.7); ABSOLUTE MONOCYTES # (MANUAL) 0.4 10^3/uL (0.1-1.4); ABSOLUTE NEUTROPHILS# (MANUAL) 19.9 10^3/uL (1.7-8.2); BASOPHILS % (MANUAL) 0 % (0-2); EOSINOPHILS % (MANUAL) 0 % (0-6); LYMPHOCYTES % (MANUAL) 8 % (13-45); MONOCYTES % (MANUAL) 2 % (3-13); PLATELET COMMENT ADEQUATE; RBC MORPHOLOGY COMMENT NORMO-CYTIC/CHROMIC; SEGMENTED NEUTROPHILS % (MAN) 90 % (42-78); TOTAL CELLS COUNTED 100
[2018-04-20 17:13] LABS: ALANINE AMINOTRANSFERASE 24 U/L (9-52); ALBUMIN 4.9 g/dL (3.5-5.0); ALKALINE PHOSPHATASE 86 U/L (38-126); ANION GAP 12 (5-19); ASPARTATE AMINO TRANSFERASE 26 U/L (14-36); BILIRUBIN,DIRECT 0.5 mg/dL (0.0-0.4); BLOOD UREA NITROGEN 13 mg/dL (7-20); CALCIUM 9.5 mg/dL (8.4-10.2); CARBON DIOXIDE 26 mmol/L (22-30); CHLORIDE 102 mmol/L (98-107); GLUCOSE 126 mg/dL (75-110); LIPASE 37.3 U/L (23-300); SODIUM 139.7 mmol/L (137-145); TOTAL PROTEIN 8.7 g/dL (6.3-8.2)
--- NOTE | 2018-04-20 18:01 | ER Document Report ---
ED General - General Chief Complaint: Abdominal Pain Stated Complaint: ABDOMINAL PAIN, BACK PAIN Time Seen by Provider: 04/20/18 15:42 Notes: Patient is a 42-year-old female that presents to the emergency department for chief complaint of abdominal pain. Patient states she started having right- sided flank pain that radiated towards the front that started last night and worsened through this morning. To the point where she was having constant nausea and dry heaving. She rates the pain at this time as a 6 out of 10 describes as a sharp and constant in nature. Denies prior history of kidney stones, but does have a history of urinary tract infections in the past. She denies noting any dysuria or hematuria, and she does not believe that she is . She does report a history of ovarian cyst in the past, but this pain is much different. Denies noting any fevers, chills, night sweats, chest pain, shortness of breath, difficulty breathing, diarrhea. Past Medical History: Denies chronic medical conditions Past Surgical History: ACL surgery, ovarian cyst removal Social History: Admits to rare alcohol use, denies tobacco or drug use. Family History: Reviewed and noncontributory for presenting illness Allergies: Reviewed, see documented allergy list. REVIEW OF SYSTEMS: Unless otherwise stated in this report the patient's positive and negative responses for review of systems for constitutional, eyes, ENT, cardiovascular, respiratory, gastrointestinal, neurological, genitourinary, musculoskeletal, and integumentary systems and related systems to the presenting problem are either as stated in the HPI or were not pertinent or were negative for the symptoms and/or complaints related to the presenting medical problem. PHYSICAL EXAMINATION: Vital signs reviewed, nursing noted reviewed. GENERAL: Well-appearing, well-nourished, appears uncomfortable HEAD: Atraumatic, normocephalic. EYES: Eyes appear normal, extraocular movements intact, sclera anicteric, conjunctiva are normal. ENT: nares patent, oropharynx clear without exudates. Moist mucous membranes. NECK: Normal range of motion, supple without lymphadenopathy LUNGS: Breath sounds clear to auscultation bilaterally and equal. No wheezes rales or rhonchi. HEART: Regular rate and rhythm without murmurs ABDOMEN: Left-sided flank tenderness with palpation, and left lower quadrant tenderness, soft, normoactive bowel sounds. No rebound, guarding, or rigidity. No masses appreciated. EXTREMITIES: Nontender, good range of motion, no pitting or edema. NEUROLOGICAL: No focal neurological deficits. Moves all extremities spontaneously Motor and sensory grossly intact on exam. PSYCH: Normal mood, normal affect. SKIN: Warm, Dry, normal turgor, no rashes or lesions noted on exposed skin TRAVEL OUTSIDE OF THE [place] IN LAST 30 DAYS: No - Related Data Allergies/Adverse Reactions: No Known Allergies Allergy (Verified 04/20/18 14:29) Past Medical History - Social History Smoking Status: Never Smoker Chew tobacco use (# tins/day): No Drug Abuse: None Family History: Reviewed & Not Pertinent Patient has suicidal ideation: No Patient has homicidal ideation: No - Past Medical History Cardiac Medical History: Denies: Hx Coronary Artery Disease, Hx Heart Attack, Hx Hypertension Pulmonary Medical History: Denies: Hx Asthma, Hx Bronchitis, Hx COPD, Hx Pneumonia Neurological Medical History: Denies: Hx Cerebrovascular Accident, Hx Seizures Renal/ Medical History: Reports: Hx Kidney Stones, Hx Ovarian Cysts - x1 right sided. Denies: Hx Peritoneal Dialysis Musculoskeletal Medical History: Denies Hx Arthritis Past Surgical History: Reports: Hx Gynecologic Surgery - ovarian cyst, Hx Orthopedic Surgery - left knee, Hx Tubal Ligation. Denies: Hx Hysterectomy - Immunizations Immunizations up to date: Yes Hx Diphtheria, Pertussis, Tetanus Vaccination: Yes Physical Exam - Vital signs Vitals: Temp 95.5 F L 04/20/18 15:25 Course - Re-evaluation Re-evalutation: Patient seen and examined vital signs reviewed. Laboratory data and imaging were ordered as appropriate for the patient's presenting symptoms and complaint, with consideration of any critical or life threatening conditions that may be associated with their obtained history and exam as noted above. Patient was treated with IV fluids, IV Zosyn, Phenergan Results were reviewed when available and demonstrated UA consistent with urinary tract infection, and given patient's clinical presentation with vomiting , and hypothermia, and leukocytosis, concerning for pyelonephritis Patient did have a CT of her abdomen and pelvis, that was essentially unremarkable, radiologist commented on possible colitis, however this did not correlate with the patient's clinical exam, and likely just under distention of the colon. The patient was re-evaluated and was much improved after receiving Zofran, and an additional dose of Dilaudid for pain, her pain was resolved, nausea resolved Evaluation was most consistent with pyelonephritis, nausea and vomiting, given that the patient is otherwise healthy, and received an IV dose of Zosyn, I feel the patient can be discharged home on oral antibiotics with ciprofloxacin, for pyelonephritis, she also be given a prescription for Phenergan for her nausea, and discharged home with 6 pills of [place] if she has breakthrough pain. She was advised if her symptoms did not improve or worsen to return to the emergency department. She was educated on ciprofloxacin and its potential side effects, and given these instructions printed out with her. Results were discussed with the patient at this point, after careful consideration I feel that that patient can be discharged from the emergency department, the patient was educated treatments and reasons to return to the emergency department based on their presumed diagnosis as noted above, they were advised to followup with a primary care physician in 2-3 days. Patient was agreeable to plan of care. *Note is created using voice recognition software and may contain spelling, syntax or grammatical errors. Laboratory 04/20/18 04/20/18 04/20/18 16:25 16:25 16:25 WBC 22.1 H RBC 4.98 Hgb 13.3 Hct 40.4 MCV 81 MCH 26.7 L MCHC 33.0 RDW 14.1 H Plt Count 292 Total Counted 100 Seg Neutrophils % Not Reportable Seg Neuts % (Manual) 90 H Lymphocytes % Not Reportable Lymphocytes % (Manual) 8 L Monocytes % Not Reportable Monocytes % (Manual) 2 L Eosinophils % Not Reportable Eosinophils % (Manual) 0 Basophils % Not Reportable Basophils % (Manual) 0 Absolute Neutrophils Not Reportable Abs Neuts (Manual) 19.9 H Absolute Lymphocytes Not Reportable Abs Lymphs (Manual) 1.8 Absolute Monocytes Not Reportable Abs Monocytes (Manual) 0.4 Absolute Eosinophils Not Reportable Absolute Eos (Manual) 0.0 Absolute Basophils Not Reportable Abs Basophils (Manual) 0.0 Platelet Comment ADEQUATE RBC Morph Comment NORMO-CYTIC/CHROMIC Sodium 139.7 Potassium 4.0 Chloride 102 Carbon Dioxide 26 Anion Gap 12 BUN 13 Creatinine 0.66 Est GFR ( Amer) > 60 Est GFR (Non-Af Amer) > 60 Glucose 126 H Lactic Acid Calcium 9.5 Total Bilirubin 1.0 Direct Bilirubin 0.5 H Neonat Total Bilirubin Not Reportable Neonat Direct Bilirubin Not Reportable Neonat Indirect Bili Not Reportable AST 26 ALT 24 Alkaline Phosphatase 86 Troponin I < 0.012 Total Protein 8.7 H Albumin 4.9 Lipase 37.3 Urine Color Urine Appearance Urine pH Ur Specific [place] Urine Protein Urine Glucose (UA) Urine Ketones Urine Blood Urine Nitrite Urine Bilirubin Urine Urobilinogen Ur Leukocyte Esterase Urine WBC (Auto) Urine RBC (Auto) Squamous Epi Cells Auto Urine Mucus (Auto) Urine Ascorbic Acid Urine HCG, Qual 04/20/18 04/20/18 19:05 20:36 WBC RBC Hgb Hct MCV MCH MCHC RDW Plt Count Total Counted Seg Neutrophils % Seg Neuts % (Manual) Lymphocytes % Lymphocytes % (Manual) Monocytes % Monocytes % (Manual) Eosinophils % Eosinophils % (Manual) Basophils % Basophils % (Manual) Absolute Neutrophils Abs Neuts (Manual) Absolute Lymphocytes Abs Lymphs (Manual) Absolute Monocytes Abs Monocytes (Manual) Absolute Eosinophils Absolute Eos (Manual) Absolute Basophils Abs Basophils (Manual) Platelet Comment RBC Morph Comment Sodium Potassium Chloride Carbon Dioxide Anion Gap BUN Creatinine Est GFR ( Amer) Est GFR (Non-Af Amer) Glucose Lactic Acid 1.6 Calcium Total Bilirubin Direct Bilirubin Neonat Total Bilirubin Neonat Direct Bilirubin Neonat Indirect Bili AST ALT Alkaline Phosphatase Troponin I Total Protein Albumin Lipase Urine Color YELLOW Urine Appearance SLIGHTLY-CLOUDY Urine pH 6.0 Ur Specific [place] 1.056 Urine Protein 30 H Urine Glucose (UA) NEGATIVE Urine Ketones TRACE H Urine Blood LARGE H Urine Nitrite NEGATIVE Urine Bilirubin NEGATIVE Urine Urobilinogen NEGATIVE Ur Leukocyte Esterase LARGE H Urine WBC (Auto) 103 Urine RBC (Auto) >182 Squamous Epi Cells Auto 7 Urine Mucus (Auto) RARE Urine Ascorbic Acid NEGATIVE Urine HCG, Qual NEGATIVE Abdomen/Pelvis CT 04/20/18 15:43 IMPRESSION: Questionable thickening versus nondistention of colon. Correlate for inflammatory bowel disease. - Vital Signs Vital signs: Temp Pulse Resp BP Pulse Ox 98.5 F 76 16 137/85 H 100 04/20/18 20:32 04/20/18 20:32 04/20/18 20:32 04/20/18 20:32 04/20/18 20:32 - Laboratory Result Diagrams: 04/20/18 16:25 04/20/18 16:25 Laboratory results interpreted by me: 04/20/18 04/20/18 04/20/18 16:25 16:25 20:36 WBC 22.1 H MCH 26.7 L RDW 14.1 H Seg Neuts % (Manual) 90 H Lymphocytes % (Manual) 8 L Monocytes % (Manual) 2 L Abs Neuts (Manual) 19.9 H Glucose 126 H Direct Bilirubin 0.5 H Total Protein 8.7 H Urine Protein 30 H Urine Ketones TRACE H Urine Blood LARGE H Ur Leukocyte Esterase LARGE H Discharge - Discharge Clinical Impression: Pyelonephritis Condition: Stable Disposition: HOME, SELF-CARE Instructions: Pyelonephritis (OM) Additional Instructions: Please return to the emergency department if you have any worsening, or concern of your symptoms. Please return to the emergency department if you develop chest pain, difficulty breathing, severe abdominal pain, or ongoing vomiting. Please follow-up with your primary care physician in 2-3 days and any other recommended physicians. If prescribed, take all medications as directed. If you have any questions or concerns do not hesitate to return the emergency department for evaluation. Special instructions: When taking ciprofloxacin, do not take it with any milk, Tums, Liana-Waldwick, or any calcium supplement if you do this this would deactivate the medication and make it ineffective. Do not run or lift weights while taking ciprofloxacin as it can affect your tendons. Prescriptions: Ciprofloxacin HCl [Cipro 500 mg Tablet] 500 mg PO BID #14 tablet Promethazine HCl [Phenergan 25 mg Tablet] 1 tab PO Q6H PRN #15 tablet PRN Reason: Referrals: [facility] [Provider Group] - Follow up in 3-5 days (primary care ) [facility] [Provider Group] - Follow up as needed
[2018-04-20 20:55] LABS: APPEARANCE,URINE SLIGHTLY-CLOUDY; BILIRUBIN,URINE NEGATIVE (NEGATIVE); COLOR,URINE YELLOW; GLUCOSE, URINE NEGATIVE (NEGATIVE); KETONES,URINE TRACE mg/dL (NEGATIVE); LEUKOCYTE ESTERASE,URINE LARGE (NEGATIVE); NITRITE,URINE NEGATIVE (NEGATIVE); PROTEIN,URINE 30 mg/dL (NEGATIVE); URINE SPECIFIC GRAVITY 1.056; UROBILINOGEN,URINE NEGATIVE mg/dL (<2.0)
--- NOTE | 2018-04-20 20:56 | RADIOLOGY REPORT (SQ) ---
EXAM DESCRIPTION: CT ABD/PELVIS WITH IV ORAL COMPLETED DATE/TIME: 04/20/2018 8:42 pm REASON FOR STUDY: Abdominal pain COMPARISON: CT renal stone 12/07/2016 TECHNIQUE: CT scan of the abdomen and pelvis performed using helical scanning technique with dynamic intravenous contrast injection. No oral contrast. Images reviewed with lung, soft tissue, and bone windows. Reconstructed coronal and sagittal MPR images reviewed. Delayed images for evaluation of the urinary system also acquired. All images stored on PACS. All CT scanners at this facility use dose modulation, iterative reconstruction, and/or weight based d osing when appropriate to reduce radiation dose to as low as reasonably achievable (ALARA). [facility]: Dose Right [facility]: CareDose [facility]: Dose Right [facility]: Teradose 4D [facility]: [employer] CONTRAST TYPE AND DOSE: contrast/concentration: Isovue 350.00 mg/ml; Total Contrast Delivered: 74.0 ml; Total Saline Delivered: 36.0 ml RENAL FUNCTION: BUN 13 creatinine 0.7 RADIATION DOSE: CT Rad equipment meets quality standard of care and radiation dose reduction techniq ues were employed. CTDIvol: 11.5 - 14.6 mGy. DLP: 1397 mGy-cm.. LIMITATIONS: None. FINDINGS: LOWER CHEST: No significant findings. No nodules or infiltrates. LIVER: Normal size. No masses. No dilated ducts. SPLEEN: Normal size. No focal lesions. PANCREAS: No masses. No significant calcifications. No adjacent inflammation or peripancreatic fluid collections. Pancreatic duct not dilated. GALLBLADDER: No identified stones by CT criteria. No inflammatory changes to suggest cholecystitis. ADRENAL GLANDS: No significant masses or asymmetry. RIGHT KIDNEY AND URETER: No solid masses. No significant calcifications. No hydronephrosis or hyd roureter. LEFT KIDNEY AND URETER: No solid masses. No significant calcifications. No hydronephrosis or hydr oureter. AORTA AND VESSELS: No aneurysm. No dissection. Renal arteries, SMA, celiac without stenosis. RETROPERITONEUM: No retroperitoneal adenopathy, hemorrhage or masses. BOWEL AND PERITONEAL CAVITY: Questionable thickening versus mere nondistention of the colon. APPENDIX: Not identified. PELVIS: No mass. No free fluid. Normal bladder. ABDOMINAL WALL: No masses. No hernias. BONES: No significant or acute findings. OTHER: No other significant finding. IMPRESSION: Questionable thickening versus nondistention of colon. Correlate for inflammatory bowel disease. TECHNICAL DOCUMENTATION: JOB ID: [id number] Quality ID # [id number]: Final reports with documentation of one or more dose reduction techniques (e.g., Au tomated exposure control, adjustment of the mA and/or kV according to patient size, use of iterative reconstruction technique) 2010 [employer]- All Rights Reserved Reading location - IP/workstation name: [email or web address]
[2018-04-20] MEDS ORDERED: HYDROMORPHONE HCL INJ/PF 2 MG/ML AMPULE IV ONE (21:01)
[2018-04-20] MEDS ORDERED: HYDROCODONE/ACETAMINOPHEN 5-325 MG (6 TAB/ER DISP) PO PRN (23:06)
[2018-04-20 23:22] VITALS: BP 110/66
== END 2018-04-20 23:29 | disposition home or self-care (01) ==
LOC: ER 14:26
DX: N12 Tubulo-interstitial nephritis, not specified as acute or chronic (principal); R11.0 Nausea; R11.2 Nausea with vomiting, unspecified; R10.814 Left lower quadrant abdominal tenderness; Z87.42 Personal history of other diseases of the female genital tract; Z87.442 Personal history of urinary calculi; Z98.51 Tubal ligation status
CPT/HCPCS: 96376; 99284; 96372; 96361; 96375; 96365; 36415; 87086; 83690; 85025; 81025; 80053; 81001; 84484; 83605; 74177; J3010; J1885; J1170; J2550; J2405; J2543

== ENCOUNTER 2018-06-10 21:40 | Emergency (ER) | payer SELFPAY ==
[2018-06-10] MEDS ORDERED: FENTANYL CITRATE INJ/PF 100 MCG/2 ML AMPUL IV ONE (22:12)
[2018-06-10] MEDS ORDERED: ONDANSETRON HCL INJ/PF 4 MG/2 ML SDV IV ONE (22:12)
[2018-06-10] MEDS ORDERED: NORMAL SALINE 1000 ML 1,000 ML IV ONE (22:14)
--- NOTE | 2018-06-10 22:15 | ER Document Report ---
ED General - General Chief Complaint: Abdominal Pain Stated Complaint: ABDOMINAL PAIN Time Seen by Provider: 06/10/18 22:02 Mode of Arrival: Ambulatory Information source: Patient Notes: 42-year-old female presents emergency department with complaints of nausea, vomiting, L flank pain that moves into the left lower quadrant. Patient states that her symptoms are similar to her previous emergency department visit 2 months ago. Patient states that she was diagnosed with pyelonephritis at that time. Patient states that her left flank pain is a sharp stabbing aching sensation. Pain moves into the LLQ. She denies any alleviating or exacerbating factors. Patient states that she is currently on her menstrual cycle. She denies any abnormal vaginal discharge, dysuria, increased urgency, increased frequency, diarrhea, constipation. Patient denies any surgeries on her abdomen. She denies a history of kidney stones. Patient states that she does have a history of ovarian cysts. TRAVEL OUTSIDE OF THE [place] IN LAST 30 DAYS: No - HPI Onset: This morning Onset/Duration: Sudden Quality of pain: Achy, Sharp, Stabbing, Throbbing Severity: Severe Associated symptoms: Nausea, Vomiting Exacerbated by: Denies Relieved by: Denies Similar symptoms previously: Yes Recently seen / treated by doctor: No - Related Data Allergies/Adverse Reactions: No Known Allergies Allergy (Verified 04/20/18 14:29) Past Medical History - General Information source: Patient - Social History Smoking Status: Never Smoker Family History: Reviewed & Not Pertinent - Past Medical History Cardiac Medical History: Denies: Hx Atrial Fibrillation, Hx Congestive Heart Failure, Hx Coronary Artery Disease, Hx Heart Attack, Hx Hypercholesterolemia, Hx Hypertension Pulmonary Medical History: Denies: Hx Asthma, Hx Bronchitis, Hx COPD, Hx Pneumonia, Hx Tuberculosis Neurological Medical History: Denies: Hx Cerebrovascular Accident, Hx Migraine, Hx Seizures Endocrine Medical History: Denies: Hx Diabetes Mellitus Type 1, Hx Diabetes Mellitus Type 2 Renal/ Medical History: Reports: Hx Kidney Stones, Hx Ovarian Cysts - x1 right sided. Denies: Hx End Stage Renal Disease, Hx Peritoneal Dialysis GI Medical History: Denies: Hx Gastroesophageal Reflux Disease, Hx Hiatal Hernia , Hx Ulcer Musculoskeletal Medical History: Denies Hx Arthritis Psychiatric Medical History: Denies: Hx Attention Deficit Hyperactivity Disorder, Hx Bipolar Disorder, Hx Depression, Hx Schizophrenia Past Surgical History: Reports: Hx Gynecologic Surgery - ovarian cyst, Hx Orthopedic Surgery - left knee, Hx Tubal Ligation. Denies: Hx Hysterectomy - Immunizations Immunizations up to date: Yes Hx Diphtheria, Pertussis, Tetanus Vaccination: Yes Review of Systems - Review of Systems Constitutional: No symptoms reported EENT: No symptoms reported Cardiovascular: No symptoms reported Respiratory: No symptoms reported Gastrointestinal: Abdominal pain, Nausea, Vomiting Genitourinary: No symptoms reported Female Genitourinary: No symptoms reported Musculoskeletal: No symptoms reported Skin: No symptoms reported Hematologic/Lymphatic: No symptoms reported Neurological/Psychological: No symptoms reported -: Yes All other systems reviewed and negative Physical Exam - Vital signs Vitals: Temp Pulse Resp BP Pulse Ox 97.9 F 76 20 134/91 H 100 06/10/18 21:50 06/10/18 21:50 06/10/18 21:50 06/10/18 21:50 06/10/18 21:50 - Notes Notes: PHYSICAL EXAMINATION: GENERAL: Vomiting in the emergency department. HEAD: Atraumatic, normocephalic. EYES: Pupils equal round and reactive to light, extraocular movements intact, conjunctiva are normal. ENT: Nares patent, oropharynx clear without exudates. Moist mucous membranes. NECK: Normal range of motion, supple without lymphadenopathy LUNGS: Breath sounds clear to auscultation bilaterally and equal. No wheezes rales or rhonchi. HEART: Regular rate and rhythm without murmurs ABDOMEN: Soft, tenderness to palpation in the left lower quadrant. No rebound or guarding. Normal active bowel sounds. Female : deferred Musculoskeletal: Normal range of motion, no pitting or edema. No cyanosis. NEUROLOGICAL: Cranial nerves grossly intact. Normal speech, normal gait. Normal sensory, motor exams PSYCH: Normal mood, normal affect. SKIN: Warm, Dry, normal turgor, no rashes or lesions noted. Course - Re-evaluation Re-evalutation: 06/11/18 03:16 Labs and imaging obtained. WBC is elevated. UA shows infection. CT abd/pel done to evaluate for stone, pyelonephritis, diverticulitis. UTI appreciated. Patient given fluids, rocephin, zofran, phenergan, reglan, fentanyl. Patient says her nausea is finally under control. Her vitals are stable. Discussed results with the patient as well as admission versus discharge. She wants to be discharged home. I will give her zofran, levofloxacin. I instructed the patient to take medication as directed, to follow up with PCP outpatient, and to return for worsening symptoms, fever, chills. 06/11/18 03:23 - Vital Signs Vital signs: Temp Pulse Resp BP Pulse Ox 97.9 F 76 20 134/91 H 98 06/10/18 21:50 06/10/18 21:50 06/10/18 21:50 06/10/18 21:50 06/10/18 22:13 - Laboratory Result Diagrams: 06/10/18 22:28 06/10/18 22:28 Laboratory results interpreted by me: 06/10/18 06/10/18 06/10/18 22:28 22:28 23:52 WBC 13.7 H MCH 26.8 L RDW 14.1 H Seg Neutrophils % 88.7 H Lymphocytes % 8.3 L Monocytes % 2.8 L Absolute Neutrophils 12.2 H Carbon Dioxide 21 L Glucose 180 H Urine Protein >=500 H Urine Glucose (UA) 50 H Urine Ketones 20 H Urine Blood LARGE H Ur Leukocyte Esterase LARGE H Discharge - Discharge Clinical Impression: Urinary tract infection Qualifiers: Urinary tract infection type: site unspecified Hematuria presence: without hematuria Qualified Code(s): N39.0 - Urinary tract infection, site not specified Condition: Good Disposition: HOME, SELF-CARE Instructions: Urinary Tract Infection ([facility]) Prescriptions: Levofloxacin [Levaquin 750 mg Tablet] 750 mg PO DAILY #5 tablet Ondansetron [Zofran Odt 4 mg Tablet] 1 tab PO Q4H PRN #15 tab.rapdis PRN Reason: For Nausea/Vomiting Referrals: PLACIDO SLOAN MD [ACTIVE STAFF] - Follow up as needed
[2018-06-10 22:53] LABS: ABSOLUTE LYMPHOCYTES (AUTO) 1.1 10^3/uL (0.5-4.7); ABSOLUTE MONOCYTES (AUTO) 0.4 10^3/uL (0.1-1.4); ABSOLUTE NEUT (AUTO) 12.2 10^3/uL (1.7-8.2); BASOPHILS % (AUTO) 0.1 % (0-2); EOSINOPHILS % (AUTO) 0.1 % (0-6); HEMOGLOBIN 12.9 g/dL (12.0-15.5); LYMPHOCYTES % (AUTO) 8.3 % (13-45); MEAN CORPUSCULAR HEMOGLOBIN 26.8 pg (27.0-33.4); MEAN CORPUSCULAR HGB CONC 33.1 g/dL (32.0-36.0); MEAN CORPUSCULAR VOLUME 81 fl (80-97); MONOCYTES % (AUTO) 2.8 % (3-13); PLATELET COUNT 265 10^3/uL (150-450); RED BLOOD COUNT 4.82 10^6/uL (3.72-5.28); RED CELL DISTRIBUTION WIDTH 14.1 % (11.5-14.0); SEGMENTED NEUTROPHILS % (AUTO) 88.7 % (42-78); TOTAL CELLS COUNTED % (AUTO) 100 %; WHITE BLOOD COUNT 13.7 10^3/uL (4.0-10.5)
[2018-06-10 23:11] LABS: ALANINE AMINOTRANSFERASE 19 U/L (9-52); ALBUMIN 4.8 g/dL (3.5-5.0); ALKALINE PHOSPHATASE 84 U/L (38-126); ANION GAP 16 (5-19); ASPARTATE AMINO TRANSFERASE 21 U/L (14-36); BILIRUBIN,DIRECT 0.1 mg/dL (0.0-0.4); BILIRUBIN,TOTAL 0.9 mg/dL (0.2-1.3); BLOOD UREA NITROGEN 10 mg/dL (7-20); CALCIUM 9.1 mg/dL (8.4-10.2); CARBON DIOXIDE 21 mmol/L (22-30); CHLORIDE 103 mmol/L (98-107); GLUCOSE 180 mg/dL (75-110); POTASSIUM 4.1 mmol/L (3.6-5.0); SODIUM 139.9 mmol/L (137-145); TOTAL PROTEIN 8.2 g/dL (6.3-8.2)
[2018-06-11 00:17] LABS: APPEARANCE,URINE CLOUDY; BILIRUBIN,URINE NEGATIVE (NEGATIVE); COLOR,URINE RED; GLUCOSE, URINE 50 mg/dL (NEGATIVE); KETONES,URINE 20 mg/dL (NEGATIVE); LEUKOCYTE ESTERASE,URINE LARGE (NEGATIVE); NITRITE,URINE NEGATIVE (NEGATIVE); PROTEIN,URINE >=500 mg/dL (NEGATIVE); URINE SPECIFIC GRAVITY 1.019; UROBILINOGEN,URINE NEGATIVE mg/dL (<2.0)
[2018-06-11] MEDS ORDERED: PROMETHAZINE HCL INJ 25 MG/1 ML VIAL IV ONE (00:32)
[2018-06-11] MEDS ORDERED: CEFTRIAXONE INJ 1000 MG VIAL IV ONE (00:33)
[2018-06-11] MEDS ORDERED: FENTANYL CITRATE INJ/PF 100 MCG/2 ML AMPUL IV ONE (00:36)
--- NOTE | 2018-06-11 02:15 | RADIOLOGY REPORT (SQ) ---
CT abdomen and pelvis with contrast on 06/11/2018 at 1:47 AM CLINICAL INDICATION: Left-sided back pain TECHNIQUE: Multiple axial images are obtained throughout the abdomen and pelvis following the administration of IV contrast. This exam was performed according to our departmental dose-optimization program, which includes automated exposure control, adjustment of the mA and/or kV according to patient size and/or use of iterative reconstruction technique. Total DLP is 1421.28 mGy*cm. COMPARISON: None currently available FINDINGS: Abdomen: The lung bases are clear. The solid abdominal organs are unremarkable. There is a very small hiatal hernia. There is no abdominal adenopathy. There is no free fluid or free air within the abdomen. The abdominal portion of the GI tract is unremarkable. Pelvis: Pelvic organs appear unremarkable by CT. Tiny focus of air is noted in the bladder most likely related to recent catheterization but please correlate clinically to exclude infection as a cause. There is no free fluid in the pelvis. There is no pelvic adenopathy. The appendix is not definitely visualized but no pericecal inflammatory changes are noted. The pelvic portion of the GI tract is unremarkable. No bony abnormality is noted. IMPRESSION: 1. Tiny focus of air in the bladder most likely related to recent catheterization but please correlate clinically to exclude infection as a cause. 2. Otherwise no acute abnormality.
[2018-06-11] MEDS ORDERED: METOCLOPRAMIDE HCL INJ/PF 10 MG/2 ML SDV IV ONE (02:18)
[2018-06-11] MEDS ORDERED: NORMAL SALINE 1000 ML 1,000 ML IV ONE (02:19)
[2018-06-11 04:46] VITALS: BP 131/80
== END 2018-06-11 04:03 | disposition home or self-care (01) ==
LOC: ER 21:40
DX: N39.0 Urinary tract infection, site not specified (principal); R10.9 Unspecified abdominal pain; R11.2 Nausea with vomiting, unspecified; Z87.442 Personal history of urinary calculi; Z98.51 Tubal ligation status
CPT/HCPCS: 96376; 99284; 96361; 51701; 96375; 96365; 36415; 87040; 87086; 85025; 81025; 80053; 81001; 74177; J3010 ×2; J2765; J2550; J0696; J2405; J7030 ×2

== ENCOUNTER 2018-06-11 21:16 | Emergency (ER) | payer SELFPAY ==
[2018-06-11] MEDS ORDERED: PROMETHAZINE HCL INJ 25 MG/1 ML VIAL IM ONE (23:08)
[2018-06-11] MEDS ORDERED: KETOROLAC TROMETHAMINE INJ/PF 30 MG/1 ML SDV IV ONE (23:08)
[2018-06-11] MEDS ORDERED: NORMAL SALINE 1000 ML 1,000 ML IV ONE (23:08)
--- NOTE | 2018-06-11 23:16 | ER Document Report ---
ED General - General Chief Complaint: Abdominal Pain Stated Complaint: ABDOMINAL PAIN Time Seen by Provider: 06/11/18 23:07 Notes: Patient is a 42-year-old female presents with complaint of left-sided abdominal pain. Said the pain is mostly of her central abdomen will been to the left. States she had a CT scan look for evidence of kidney stone it was negative. She was diagnosed with UTI but has continued to vomit have pain and has been unable to hold down her antibiotics therefore is come to the ER. She had similar pains a month prior. She said it appears that the pains occurred during her menstrual period. She is currently in the third day of her menstrual period. No fevers. No diarrhea. No other complaints at this time. TRAVEL OUTSIDE OF THE [place] IN LAST 30 DAYS: No - Related Data Allergies/Adverse Reactions: No Known Allergies Allergy (Verified 04/20/18 14:29) Past Medical History - Social History Smoking Status: Never Smoker Frequency of alcohol use: None Drug Abuse: None Family History: Reviewed & Not Pertinent - Past Medical History Cardiac Medical History: Denies: Hx Atrial Fibrillation, Hx Congestive Heart Failure, Hx Coronary Artery Disease, Hx Heart Attack, Hx Hypercholesterolemia, Hx Hypertension Pulmonary Medical History: Denies: Hx Asthma, Hx Bronchitis, Hx COPD, Hx Pneumonia, Hx Tuberculosis Neurological Medical History: Denies: Hx Cerebrovascular Accident, Hx Migraine, Hx Seizures Endocrine Medical History: Denies: Hx Diabetes Mellitus Type 1, Hx Diabetes Mellitus Type 2 Renal/ Medical History: Reports: Hx Kidney Stones, Hx Ovarian Cysts - x1 right sided. Denies: Hx End Stage Renal Disease, Hx Peritoneal Dialysis GI Medical History: Denies: Hx Gastroesophageal Reflux Disease, Hx Hiatal Hernia , Hx Ulcer Musculoskeletal Medical History: Denies Hx Arthritis Psychiatric Medical History: Denies: Hx Attention Deficit Hyperactivity Disorder, Hx Bipolar Disorder, Hx Depression, Hx Schizophrenia Past Surgical History: Reports: Hx Gynecologic Surgery - ovarian cyst, Hx Orthopedic Surgery - left knee, Hx Tubal Ligation. Denies: Hx Hysterectomy - Immunizations Immunizations up to date: Yes Hx Diphtheria, Pertussis, Tetanus Vaccination: Yes Review of Systems - Review of Systems Notes: My Normal Review Basic REVIEW OF SYSTEMS: CONSTITUTIONAL : Denies fever, chills, or sweats. Denies recent illness. RESPIRATORY: Denies cough, cold, or chest congestion. Denies shortness of breath, difficulty breathing, or wheezing. GASTROINTESTINAL: Lower and left side abdominal pain and vomiting. MUSCULOSKELETAL: Denies neck or back pain or joint pain or swelling. SKIN: Denies rash or skin lesions. NEUROLOGICAL: Denies altered mental status or loss of consciousness. Denies headache. Denies weakness or paralysis or loss of use of either side. Denies problems with gait or speech. Denies sensory or motor loss. ALL OTHER SYSTEMS REVIEWED AND NEGATIVE. Physical Exam - Vital signs Vitals: Temp Pulse Resp BP Pulse Ox 98.5 F 83 19 119/82 100 06/11/18 21:25 06/11/18 21:25 06/11/18 21:25 06/11/18 21:25 06/11/18 21:25 - Notes Notes: General Appearance: Well nourished, alert, cooperative, no acute distress, moderate obvious discomfort. Vitals: reviewed, See vital signs table. Head: no swelling or tenderness to the head Eyes: PERRL, EOMI, Conjuctiva clear Mouth: No decreasd moisture Lungs: No wheezing, No rales, No rhonci, No accessory muscle use, good air exchange bilaterally. Heart: Normal rate, Regular rythm, No murmur, no rub Abdomen: Normal BS, soft, No rigidity, mild to moderate left lower and suprapubic abdominal tenderness palpation., No guarding, no rebound, no abdominal masses, no organomegaly Extremities: good pulses in all extremities, no swelling or tenderness in the extremities, no edema. Skin: warm, dry, appropriate color, no rash Neuro: speech clear, oriented x 3, normal affect, responds appropriately to questions. Course - Re-evaluation Re-evalutation: 06/12/18 01:05 Patient's pain completely resolved with the Toradol. Being that her pain seems to be associate with her menstrual cycles we will obtain ultrasound of her pelvis. Patient is agreeable with this plan. 06/12/18 04:40 Ultrasound shows evidence of uterine fibroid. We will have her follow-up with women's health. Toradol seems to help significantly with the pain so I have placed her on Toradol. Urinalysis was negative and a straight cath. I suspect the urinalysis to get yesterday was probably a contaminant specimen being that she is on her menstrual period. Patient looks well and feels much improved. I feel she is safe to be discharged home. I strongly encouraged her return to ER if she has recurrent worsening pain, intractable vomiting, fevers, or feels unwell. Patient agrees with plan will be discharged home. Dictation of this chart was performed using voice recognition software; therefore, there may be some unintended grammatical errors. - Vital Signs Vital signs: Temp Pulse Resp BP Pulse Ox 98.6 F 75 16 133/89 H 100 06/12/18 03:36 06/12/18 03:36 06/12/18 03:36 06/12/18 03:36 06/12/18 03:36 - Laboratory Result Diagrams: 06/11/18 23:44 06/11/18 23:44 Laboratory results interpreted by me: 06/11/18 06/11/18 06/12/18 23:44 23:44 00:08 WBC 13.0 H Hgb 11.9 L MCH 26.5 L RDW 14.2 H Seg Neutrophils % 82.2 H Lymphocytes % 11.3 L Absolute Neutrophils 10.7 H Potassium 3.4 L Glucose 123 H Urine Blood SMALL H Discharge - Discharge Clinical Impression: Pelvic pain, Fibroids Condition: Good Disposition: HOME, SELF-CARE Additional Instructions: Please call [facility] (Dr. Wright) on Thursday for a close reevaluation and further treatment options for your uterine fibroids. please return to the ER immediately if you develop intractable pain, intractable vomiting, fevers, or feel unwell. Do not take other NSAID medicaitons such as Aspirin, Motrin, Ibuprofen, Aleve, or Advil when taking Toradol. It is okay to take Tylenol. Prescriptions: Ketorolac Tromethamine [Toradol 10 mg Tablet] 10 mg PO Q6HP PRN #15 tablet PRN Reason: Promethazine HCl [Phenergan 25 mg Tablet] 1 tab PO Q6H PRN #15 tablet PRN Reason: Forms: Return to Work Referrals: WHITNEY WRIGHT MD [ACTIVE STAFF] - 06/14/18
[2018-06-11 23:52] LABS: ABSOLUTE LYMPHOCYTES (AUTO) 1.5 10^3/uL (0.5-4.7); ABSOLUTE MONOCYTES (AUTO) 0.8 10^3/uL (0.1-1.4); ABSOLUTE NEUT (AUTO) 10.7 10^3/uL (1.7-8.2); BASOPHILS % (AUTO) 0.1 % (0-2); HEMOGLOBIN 11.9 g/dL (12.0-15.5); LYMPHOCYTES % (AUTO) 11.3 % (13-45); MEAN CORPUSCULAR HEMOGLOBIN 26.5 pg (27.0-33.4); MEAN CORPUSCULAR HGB CONC 33.1 g/dL (32.0-36.0); MEAN CORPUSCULAR VOLUME 80 fl (80-97); MONOCYTES % (AUTO) 6.4 % (3-13); PLATELET COUNT 239 10^3/uL (150-450); RED CELL DISTRIBUTION WIDTH 14.2 % (11.5-14.0); SEGMENTED NEUTROPHILS % (AUTO) 82.2 % (42-78); TOTAL CELLS COUNTED % (AUTO) 100 %
[2018-06-12 00:21] LABS: BLOOD UREA NITROGEN 7 mg/dL (7-20); CALCIUM 9.1 mg/dL (8.4-10.2); CARBON DIOXIDE 26 mmol/L (22-30); CHLORIDE 99 mmol/L (98-107); GLUCOSE 123 mg/dL (75-110); POTASSIUM 3.4 mmol/L (3.6-5.0)
[2018-06-12 00:22] LABS: ANION GAP 13 (5-19); SODIUM 137.6 mmol/L (137-145)
[2018-06-12 00:24] LABS: APPEARANCE,URINE CLEAR; BILIRUBIN,URINE NEGATIVE (NEGATIVE); COLOR,URINE COLORLESS; GLUCOSE, URINE NEGATIVE (NEGATIVE); KETONES,URINE NEGATIVE (NEGATIVE); LEUKOCYTE ESTERASE,URINE NEGATIVE (NEGATIVE); NITRITE,URINE NEGATIVE (NEGATIVE); PROTEIN,URINE NEGATIVE (NEGATIVE); URINE SPECIFIC GRAVITY 1.001; UROBILINOGEN,URINE NEGATIVE mg/dL (<2.0)
--- NOTE | 2018-06-12 03:03 | RADIOLOGY REPORT (SQ) ---
Ultrasound pelvis transvaginal on 06/12/2018 at 2:24 AM Clinical indications: Pelvic pain, UTI COMPARISON: CT from 06/11/2018 FINDINGS: Multiple sonographic images are obtained throughout the pelvis by transvaginal approach, both transverse and sagittal images are obtained. Uterus measures approximately 9.4 x 4.9 x 5.3 cm. Endometrial stripe measures 6 mm which is within normal limits. Small nabothian cysts are noted in the cervix. There is heterogeneous intramural fibroid in the anterior aspect of the mid uterus measuring 2.8 cm in greatest diameter. Right ovary measures approximately 1.7 x 2.6 x 1.8 cm. Flow is demonstrated in the right ovary. Left ovary measures approximately 1.2 x 2.7 x 1.5 cm. Flow is demonstrated in the left ovary. No free fluid is noted. No adnexal mass or fluid collection is noted. IMPRESSION: Uterine fibroid noted, otherwise unremarkable.
[2018-06-12] MEDS ORDERED: KETOROLAC TROMETHAMINE INJ/PF 30 MG/1 ML SDV IV ONE (03:12)
[2018-06-12 03:41] VITALS: BP 133/89
== END 2018-06-12 03:40 | disposition home or self-care (01) ==
LOC: ER 21:16
DX: D25.1 Intramural leiomyoma of uterus (principal); N39.0 Urinary tract infection, site not specified; R10.2 Pelvic and perineal pain; R11.10 Vomiting, unspecified; Z87.442 Personal history of urinary calculi; Z98.51 Tubal ligation status; Z87.19 Personal history of other diseases of the digestive system
CPT/HCPCS: 96376; 99284; 96372; 96361; 51701; 96374; 36415; 83735; 84703; 85025; 80048; 81001; 76830; 93976; J1885 ×2; J2550; J7030

== ENCOUNTER 2018-10-10 10:59 | Emergency (ER) | payer SELFPAY ==
[2018-10-10] MEDS ORDERED: ONDANSETRON 4 MG TAB.RAPDIS PO ONE (11:10)
[2018-10-10] MEDS ORDERED: NORMAL SALINE 1000 ML 1,000 ML IV ONE (11:10)
--- NOTE | 2018-10-10 11:12 | ER Document Report ---
ED Medical Screen (RME) - General Chief Complaint: Nausea/Vomiting Stated Complaint: VOMITING Time Seen by Provider: 10/10/18 11:09 Mode of Arrival: Ambulatory Information source: Patient TRAVEL OUTSIDE OF THE [place] IN LAST 30 DAYS: No - HPI Patient complains to provider of: ; dizzy; N/V Onset: This morning - Pt is approx 29 wks with onset earlier this am of dizziness, N/V. Denies vaginal bleeding or pain - Related Data Allergies/Adverse Reactions: No Known Allergies Allergy (Verified 04/20/18 14:29) Past Medical History - Past Medical History Cardiac Medical History: Denies: Hx Atrial Fibrillation, Hx Congestive Heart Failure, Hx Coronary Artery Disease, Hx Heart Attack, Hx Hypercholesterolemia, Hx Hypertension Pulmonary Medical History: Denies: Hx Asthma, Hx Bronchitis, Hx COPD, Hx Pneumonia, Hx Tuberculosis Neurological Medical History: Denies: Hx Cerebrovascular Accident, Hx Migraine, Hx Seizures Endocrine Medical History: Denies: Hx Diabetes Mellitus Type 1, Hx Diabetes Mellitus Type 2 Renal/ Medical History: Reports: Hx Kidney Stones, Hx Ovarian Cysts - x1 right sided. Denies: Hx End Stage Renal Disease, Hx Peritoneal Dialysis GI Medical History: Denies: Hx Gastroesophageal Reflux Disease, Hx Hiatal Hernia, Hx Ulcer Musculoskeltal Medical History: Denies Hx Arthritis Psychiatric Medical History: Denies: Hx Attention Deficit Hyperactivity Disorder, Hx Bipolar Disorder, Hx Depression, Hx Schizophrenia Past Surgical History: Reports: Hx Gynecologic Surgery - ovarian cyst, Hx Orthopedic Surgery - left knee, Hx Tubal Ligation. Denies: Hx Hysterectomy - Immunizations Immunizations up to date: Yes Hx Diphtheria, Pertussis, Tetanus Vaccination: Yes Physical Exam - Vital signs Vitals: Temp Pulse Resp BP Pulse Ox 99.3 F 78 16 130/90 H 96 10/10/18 11:06 10/10/18 11:06 10/10/18 11:06 10/10/18 11:06 10/10/18 11:06 Course - Vital Signs Vital signs: Temp Pulse Resp BP Pulse Ox 99.3 F 78 16 130/90 H 96 10/10/18 11:06 10/10/18 11:06 10/10/18 11:06 10/10/18 11:06 10/10/18 11:06
--- NOTE | 2018-10-10 11:18 | ER Document Report ---
ED Medical Screen (RME) - General Chief Complaint: Nausea/Vomiting Stated Complaint: VOMITING Time Seen by Provider: 10/10/18 11:09 Mode of Arrival: Ambulatory TRAVEL OUTSIDE OF THE [place] IN LAST 30 DAYS: No - HPI Patient complains to provider of: N/V Onset: Yesterday - pt with onseet of recurrent N/V for the past 2 days - Related Data Allergies/Adverse Reactions: No Known Allergies Allergy (Verified 04/20/18 14:29) Past Medical History - Past Medical History Cardiac Medical History: Denies: Hx Atrial Fibrillation, Hx Congestive Heart Failure, Hx Coronary Artery Disease, Hx Heart Attack, Hx Hypercholesterolemia, Hx Hypertension Pulmonary Medical History: Denies: Hx Asthma, Hx Bronchitis, Hx COPD, Hx Pneumonia, Hx Tuberculosis Neurological Medical History: Denies: Hx Cerebrovascular Accident, Hx Migraine, Hx Seizures Endocrine Medical History: Denies: Hx Diabetes Mellitus Type 1, Hx Diabetes Mellitus Type 2 Renal/ Medical History: Reports: Hx Kidney Stones, Hx Ovarian Cysts - x1 right sided. Denies: Hx End Stage Renal Disease, Hx Peritoneal Dialysis GI Medical History: Denies: Hx Gastroesophageal Reflux Disease, Hx Hiatal Hernia, Hx Ulcer Musculoskeltal Medical History: Denies Hx Arthritis Psychiatric Medical History: Denies: Hx Attention Deficit Hyperactivity Disorder, Hx Bipolar Disorder, Hx Depression, Hx Schizophrenia Past Surgical History: Reports: Hx Gynecologic Surgery - ovarian cyst, Hx Orthopedic Surgery - left knee, Hx Tubal Ligation. Denies: Hx Hysterectomy - Immunizations Immunizations up to date: Yes Hx Diphtheria, Pertussis, Tetanus Vaccination: Yes Physical Exam - Vital signs Vitals: Temp Pulse Resp BP Pulse Ox 99.3 F 78 16 130/90 H 96 10/10/18 11:06 10/10/18 11:06 10/10/18 11:06 10/10/18 11:06 10/10/18 11:06 Course - Vital Signs Vital signs: Temp Pulse Resp BP Pulse Ox 99.3 F 78 16 130/90 H 96 10/10/18 11:06 10/10/18 11:06 10/10/18 11:06 10/10/18 11:06 10/10/18 11:06
[2018-10-10 11:49] LABS: ABSOLUTE LYMPHOCYTES (AUTO) 1.5 10^3/uL (0.5-4.7); ABSOLUTE MONOCYTES (AUTO) 0.6 10^3/uL (0.1-1.4); ABSOLUTE NEUT (AUTO) 9.3 10^3/uL (1.7-8.2); BASOPHILS % (AUTO) 0.1 % (0-2); HEMATOCRIT 41.7 % (36.0-47.0); HEMOGLOBIN 14.2 g/dL (12.0-15.5); MEAN CORPUSCULAR VOLUME 79 fl (80-97); MONOCYTES % (AUTO) 5.1 % (3-13); PLATELET COUNT 254 10^3/uL (150-450); RED BLOOD COUNT 5.26 10^6/uL (3.72-5.28); RED CELL DISTRIBUTION WIDTH 15.1 % (11.5-14.0); SEGMENTED NEUTROPHILS % (AUTO) 81.8 % (42-78); TOTAL CELLS COUNTED % (AUTO) 100 %; WHITE BLOOD COUNT 11.4 10^3/uL (4.0-10.5)
[2018-10-10 12:01] LABS: APPEARANCE,URINE SLIGHTLY-CLOUDY; BILIRUBIN,URINE NEGATIVE (NEGATIVE); COLOR,URINE ORANGE; GLUCOSE, URINE NEGATIVE (NEGATIVE); KETONES,URINE NEGATIVE (NEGATIVE); LEUKOCYTE ESTERASE,URINE TRACE (NEGATIVE); NITRITE,URINE POSITIVE (NEGATIVE); PROTEIN,URINE 100 mg/dL (NEGATIVE); URINE SPECIFIC GRAVITY 1.027
[2018-10-10] MEDS ORDERED: METOCLOPRAMIDE HCL INJ/PF 10 MG/2 ML SDV IV ONE (12:06)
[2018-10-10] MEDS ORDERED: DIPHENHYDRAMINE HCL 50 MG/ML VIAL IV ONE (12:07)
[2018-10-10 12:08] LABS: ALANINE AMINOTRANSFERASE 21 U/L (9-52); ALBUMIN 5.2 g/dL (3.5-5.0); ALKALINE PHOSPHATASE 68 U/L (38-126); ANION GAP 15 (5-19); ASPARTATE AMINO TRANSFERASE 27 U/L (14-36); BILIRUBIN,DIRECT 0.1 mg/dL (0.0-0.4); BLOOD UREA NITROGEN 11 mg/dL (7-20); CALCIUM 10.3 mg/dL (8.4-10.2); CARBON DIOXIDE 29 mmol/L (22-30); CHLORIDE 91 mmol/L (98-107); GLUCOSE 124 mg/dL (75-110); POTASSIUM 3.6 mmol/L (3.6-5.0); SODIUM 135.4 mmol/L (137-145); TOTAL PROTEIN 8.6 g/dL (6.3-8.2)
--- NOTE | 2018-10-10 12:14 | ER Document Report ---
ED General - General Chief Complaint: Nausea/Vomiting Stated Complaint: VOMITING Time Seen by Provider: 10/10/18 11:09 Mode of Arrival: Ambulatory Information source: Patient, [facility] Records Notes: 42-year-old female with no reported past medical history presents with complaint of nausea, vomiting, generalized abdominal pain and diarrhea that started 2 days prior to arrival. Patient states that she has had more than 10 episodes of vomiting per day. She initially had diarrhea but states this resolved. Her abdominal pain is described as a cramping pain that occurs prior to vomiting. She denies sick contacts. She does not believe she is as she has had a tubal ligation. Her last menstrual period was October 01, 2018. TRAVEL OUTSIDE OF THE [place] IN LAST 30 DAYS: No - HPI Onset: Other Onset/Duration: Gradual, Persistent Quality of pain: Cramping Severity: Mild Associated symptoms: Diarrhea - Resolved, Nausea, Vomiting Exacerbated by: Food Relieved by: Denies Similar symptoms previously: No Recently seen / treated by doctor: No - Related Data Allergies/Adverse Reactions: No Known Allergies Allergy (Verified 04/20/18 14:29) Past Medical History - General Information source: Patient - Social History Smoking Status: Never Smoker Frequency of alcohol use: Occasional Drug Abuse: None Lives with: Family Family History: Reviewed & Not Pertinent Patient has suicidal ideation: No Patient has homicidal ideation: No - Past Medical History Cardiac Medical History: Denies: Hx Atrial Fibrillation, Hx Congestive Heart Failure, Hx Coronary Artery Disease, Hx Heart Attack, Hx Hypercholesterolemia, Hx Hypertension Pulmonary Medical History: Denies: Hx Asthma, Hx Bronchitis, Hx COPD, Hx Pneumonia, Hx Tuberculosis Neurological Medical History: Denies: Hx Cerebrovascular Accident, Hx Migraine, Hx Seizures Endocrine Medical History: Denies: Hx Diabetes Mellitus Type 1, Hx Diabetes Mellitus Type 2 Renal/ Medical History: Reports: Hx Kidney Stones, Hx Ovarian Cysts - x1 right sided. Denies: Hx End Stage Renal Disease, Hx Peritoneal Dialysis GI Medical History: Denies: Hx Gastroesophageal Reflux Disease, Hx Hiatal Hernia, Hx Ulcer Musculoskeletal Medical History: Denies Hx Arthritis Psychiatric Medical History: Denies: Hx Attention Deficit Hyperactivity Disorder, Hx Bipolar Disorder, Hx Depression, Hx Schizophrenia Past Surgical History: Reports: Hx Gynecologic Surgery - ovarian cyst, Hx Orthopedic Surgery - left knee, Hx Tubal Ligation. Denies: Hx Hysterectomy - Immunizations Immunizations up to date: Yes Hx Diphtheria, Pertussis, Tetanus Vaccination: Yes Review of Systems - Review of Systems Notes: REVIEW OF SYSTEMS: CONSTITUTIONAL : Denies fever, chills, or sweats. Denies recent illness. Denies weight loss, recent hospitalizations. EENT: Denies visual changes, eye pain. Denies sore throat, oral lesions, diffic ulty swallowing. CARDIOVASCULAR: Denies chest pain. Denies palpitations. Denies lower extremity edema. RESPIRATORY: Denies cough. Denies shortness of breath, wheezing. GASTROINTESTINAL: Denies abdominal distention. Denies blood in vomitus, stools, or per rectum. Denies black, tarry stools. Denies constipation. GENITOURINARY: Denies difficulty urinating, painful urination, frequency, b lood in urine, or vaginal discharge. MUSCULOSKELETAL: Denies back or neck pain or stiffness. Denies joint pain or swelling. SKIN: Denies rash, lesions or sores. HEMATOLOGIC : Denies easy bruising or bleeding. LYMPHATIC: Denies swollen glands. NEUROLOGICAL: Denies confusion or altered mental status. Denies loss of consciousness. Denies dizziness or lightheadedness. Denies headache. Denies weakness or paralysis. Denies problems difficulty with ambulation, slurred speech. Denies sensory loss, numbness, or tingling. Denies seizures. PSYCHIATRIC: Denies anxiety or stress. Denies depression, suicidal ideation, or homicidal ideation. Denies visual or auditory hallucinations. Physical Exam - Vital signs Vitals: Temp Pulse Resp BP Pulse Ox 99.3 F 78 16 130/90 H 96 10/10/18 11:06 10/10/18 11:06 10/10/18 11:06 10/10/18 11:06 10/10/18 11:06 - Notes Notes: PHYSICAL EXAMINATION: GENERAL: Ill-appearing, but not toxic appearing, well-nourished and in no acute distress. HEAD: Atraumatic, normocephalic. EYES: Pupils equal round and reactive to light, extraocular movements intact, conjunctiva are normal. ENT: Nares patent, oropharynx clear without exudates. Moist mucous membranes. NECK: Normal range of motion, supple without lymphadenopathy LUNGS: Breath sounds clear to auscultation bilaterally and equal. No wheezes rales or rhonchi. HEART: Regular rate and rhythm without murmurs ABDOMEN: Soft, nontender, nondistended abdomen. No guarding, no rebound. No masses appreciated. Female : deferred Musculoskeletal: Normal range of motion, no pitting or edema. No cyanosis. NEUROLOGICAL: Cranial nerves grossly intact. Normal speech, normal gait. Normal sensory, motor exams PSYCH: Normal mood, normal affect. SKIN: Warm, Dry, normal turgor, no rashes or lesions noted. Course - Re-evaluation Re-evalutation: 10/11/18 12:57 Laboratory 10/10/18 10/10/18 10/10/18 11:27 11:27 11:27 WBC 11.4 H RBC 5.26 Hgb 14.2 Hct 41.7 MCV 79 L MCH 27.0 MCHC 34.0 RDW 15.1 H Plt Count 254 Seg Neutrophils % 81.8 H Lymphocytes % 13.0 Monocytes % 5.1 Eosinophils % 0.0 Basophils % 0.1 Absolute Neutrophils 9.3 H Absolute Lymphocytes 1.5 Absolute Monocytes 0.6 Absolute Eosinophils 0.0 Absolute Basophils 0.0 Sodium 135.4 L Potassium 3.6 Chloride 91 L Carbon Dioxide 29 Anion Gap 15 BUN 11 Creatinine 0.63 Est GFR ( Amer) > 60 Est GFR (Non-Af Amer) > 60 Glucose 124 H Calcium 10.3 H Total Bilirubin 1.0 Direct Bilirubin 0.1 Neonat Total Bilirubin Not Reportable Neonat Direct Bilirubin Not Reportable Neonat Indirect Bili Not Reportable AST 27 ALT 21 Alkaline Phosphatase 68 Total Protein 8.6 H Albumin 5.2 H Urine Color ORANGE Urine Appearance SLIGHTLY-CLOUDY Urine pH 6.0 Ur Specific [place] 1.027 Urine Protein 100 H Urine Glucose (UA) NEGATIVE Urine Ketones NEGATIVE Urine Blood MODERATE H Urine Nitrite POSITIVE H Urine Bilirubin NEGATIVE Urine Urobilinogen 4.0 H Ur Leukocyte Esterase TRACE H Urine WBC (Auto) 54 Urine RBC (Auto) 24 Urine Bacteria (Auto) TRACE Squamous Epi Cells Auto 9 Urine Mucus (Auto) MANY Urine Ascorbic Acid NEGATIVE Urine HCG, Qual 10/10/18 11:27 WBC RBC Hgb Hct MCV MCH MCHC RDW Plt Count Seg Neutrophils % Lymphocytes % Monocytes % Eosinophils % Basophils % Absolute Neutrophils Absolute Lymphocytes Absolute Monocytes Absolute Eosinophils Absolute Basophils Sodium Potassium Chloride Carbon Dioxide Anion Gap BUN Creatinine Est GFR ( Amer) Est GFR (Non-Af Amer) Glucose Calcium Total Bilirubin Direct Bilirubin Neonat Total Bilirubin Neonat Direct Bilirubin Neonat Indirect Bili AST ALT Alkaline Phosphatase Total Protein Albumin Urine Color Urine Appearance Urine pH Ur Specific [place] Urine Protein Urine Glucose (UA) Urine Ketones Urine Blood Urine Nitrite Urine Bilirubin Urine Urobilinogen Ur Leukocyte Esterase Urine WBC (Auto) Urine RBC (Auto) Urine Bacteria (Auto) Squamous Epi Cells Auto Urine Mucus (Auto) Urine Ascorbic Acid Urine HCG, Qual NEGATIVE Temp Pulse Resp BP Pulse Ox 99.3 F 64 16 138/75 H 100 10/10/18 15:09 10/10/18 15:09 10/10/18 15:09 10/10/18 15:09 10/10/18 15:10/11/18 12:58 42-year-old female presents with nausea, vomiting, intermittent generalized abdominal pain and diarrhea. Patient was provided IV fluids, Zofran, Reglan, Benadryl and has had no further vomiting during her ED course. Significant findings is a urinalysis consistent with urinary tract infection. Patient did receive ceftriaxone. Patient was able to tolerate Gatorade prior to discharge. Vitals wnl. No history of fever, flank pain, or constitution symptoms to suggest ascending infection at this time. Patient is was initially ill-appearing but now appears much more comfortable. He is tolerating oral intake without difficulty. No focal abdominal tenderness to suggest acute appendicitis, biliary pathology, acute pancreatitis, tubo-ovarian abscesses, or pelvic inflammatory disease. Patient will be started on antibiotics at this time. They will be discharged with return precautions and follow-up recommendations. - Vital Signs Vital signs: Temp Pulse Resp BP Pulse Ox 99.3 F 64 16 138/75 H 100 10/10/18 15:09 10/10/18 15:09 10/10/18 15:10/10/18 15:09 10/10/18 15:09 - Laboratory Result Diagrams: 10/10/18 11:27 10/10/18 11:27 Laboratory results interpreted by me: 10/10/18 10/10/18 10/10/18 11:27 11:27 11:27 WBC 11.4 H MCV 79 L RDW 15.1 H Seg Neutrophils % 81.8 H Absolute Neutrophils 9.3 H Sodium 135.4 L Chloride 91 L Glucose 124 H Calcium 10.3 H Total Protein 8.6 H Albumin 5.2 H Urine Protein 100 H Urine Blood MODERATE H Urine Nitrite POSITIVE H Urine Urobilinogen 4.0 H Ur Leukocyte Esterase TRACE H Discharge - Discharge Clinical Impression: Elevated blood pressure reading Nausea & vomiting Qualifiers: Vomiting type: unspecified Vomiting Intractability: non-intractable Qualified Code(s): R11.2 - Nausea with vomiting, unspecified Urinary tract infection Qualifiers: Urinary tract infection type: site unspecified Hematuria presence: with hematuria Qualified Code(s): N39.0 - Urinary tract infection, site not specified Condition: Good Disposition: HOME, SELF-CARE Instructions: Urinary Tract Infection ([facility]), Vomiting ([facility]) Additional Instructions: Your urine shows findings consistent with a urinary tract infection. Please take all the antibiotics as directed even if your symptoms have improved. Please follow-up with your primary care physician as needed. Return to emergency room if you develop fever >101F, persistent vomiting, become lethargic , have severe pain in your sides, or any other symptoms that are concerning to you. Prescriptions: Cephalexin Monohydrate [Keflex 500 mg Capsule] 500 mg PO BID 5 Days #10 capsule Ondansetron [Zofran Odt 4 mg Tablet] 1 - 2 tab PO Q4H PRN #15 tab.rapdis PRN Reason: For Nausea/Vomiting Forms: Elevated Blood Pressure
[2018-10-10] MEDS ORDERED: CEFTRIAXONE 1 GM/D5W RTU 1 GM/50 ML RTUPB IV ONE (12:50)
[2018-10-10 15:13] VITALS: BP 138/75
== END 2018-10-10 15:12 | disposition home or self-care (01) ==
LOC: ER 10:59
DX: R03.0 Elevated blood-pressure reading, without diagnosis of hypertension (principal); R11.2 Nausea with vomiting, unspecified; N39.0 Urinary tract infection, site not specified; R10.84 Generalized abdominal pain; R19.7 Diarrhea, unspecified; Z87.442 Personal history of urinary calculi; Z98.51 Tubal ligation status
CPT/HCPCS: 99284; 96361; 96375; 96365; 36415; 85025; 81025; 80053; 81001; J1200; S0119; J2765; J7030; J0696

== ENCOUNTER 2020-03-05 17:34 | Emergency (ER) | payer MEDICAID ==
[2020-03-05] MEDS ORDERED: ONDANSETRON HCL INJ/PF 4 MG/2 ML SDV IV ONE (18:32)
[2020-03-05] MEDS ORDERED: MORPHINE SULFATE 10 MG/ML INJ IV ONE (18:32)
--- NOTE | 2020-03-05 18:34 | ER Document Report ---
ED Medical Screen (RME) - General Chief Complaint: Flank Pain Stated Complaint: LEFT FLANK PAIN,NAUSEA Time Seen by Provider: 03/05/20 18:29 Notes: HPI: 44-year-old female presenting with 2 to 3 months of fairly daily left flank and abdominal pain. Takes Advil and the pain seems to get better. Pain became significantly worse last night with low-grade fever and multiple episodes of vomiting. Patient states she has had diarrheal stools for "months". Has not been evaluated by gastroenterology. States that she believes she may have had a colitis history in the past PHYSICAL EXAMINATION: Patient appears moderately uncomfortable with tenderness through the left lower quadrant or left flank region. Patient is actively nauseated I have greeted and performed a rapid initial assessment of this patient. A comprehensive ED assessment and evaluation of the patient, analysis of test results and completion of medical decision making process will be conducted by an additional ED providers. TRAVEL OUTSIDE OF THE [place] IN LAST 30 DAYS: No - Related Data Allergies/Adverse Reactions: No Known Allergies Allergy (Verified 03/30/19 10:25) Home Medications: Adderrall Past Medical History - Social History Frequency of alcohol use: Occasional - Past Medical History Cardiac Medical History: Denies: Hx Atrial Fibrillation, Hx Congestive Heart Failure, Hx Coronary Artery Disease, Hx Heart Attack, Hx Hypercholesterolemia, Hx Hypertension Pulmonary Medical History: Denies: Hx Asthma, Hx Bronchitis, Hx COPD, Hx Pneumonia, Hx Tuberculosis Neurological Medical History: Denies: Hx Cerebrovascular Accident, Hx Migraine, Hx Seizures Endocrine Medical History: Denies: Hx Diabetes Mellitus Type 1, Hx Diabetes Mellitus Type 2 Renal/ Medical History: Reports: Hx Kidney Stones, Hx Ovarian Cysts - x1 right sided. Denies: Hx End Stage Renal Disease, Hx Peritoneal Dialysis GI Medical History: Denies: Hx Gastroesophageal Reflux Disease, Hx Hiatal Hernia, Hx Ulcer Musculoskeltal Medical History: Denies Hx Arthritis Psychiatric Medical History: Denies: Hx Attention Deficit Hyperactivity Disorder, Hx Bipolar Disorder, Hx Depression, Hx Schizophrenia Past Surgical History: Reports: Hx Gynecologic Surgery - ovarian cyst, Hx Orthopedic Surgery - left knee, Hx Tubal Ligation. Denies: Hx Hysterectomy - Immunizations Immunizations up to date: Yes Hx Diphtheria, Pertussis, Tetanus Vaccination: Yes Physical Exam - Vital signs Vitals: Temp Pulse Resp BP Pulse Ox 98.7 F 81 15 146/82 H 99 03/05/20 17:49 03/05/20 17:49 03/05/20 17:49 03/05/20 17:49 03/05/20 17:49 Course - Vital Signs Vital signs: Temp Pulse Resp BP Pulse Ox 98.7 F 81 15 146/82 H 99 03/05/20 17:49 03/05/20 17:49 03/05/20 17:49 03/05/20 17:49 03/05/20 17:49
[2020-03-05 19:18] LABS: ABSOLUTE LYMPHOCYTES (AUTO) 1.4 10^3/uL (0.5-4.7); ABSOLUTE MONOCYTES (AUTO) 0.9 10^3/uL (0.1-1.4); BASOPHILS % (AUTO) 0.1 % (0-2); HEMATOCRIT 40.6 % (36.0-47.0); HEMOGLOBIN 13.5 g/dL (12.0-15.5); LYMPHOCYTES % (AUTO) 8.6 % (13-45); MEAN CORPUSCULAR HEMOGLOBIN 27.9 pg (27.0-33.4); MEAN CORPUSCULAR HGB CONC 33.3 g/dL (32.0-36.0); MEAN CORPUSCULAR VOLUME 84 fl (80-97); MONOCYTES % (AUTO) 5.4 % (3-13); PLATELET COUNT 266 10^3/uL (150-450); RED BLOOD COUNT 4.85 10^6/uL (3.72-5.28); RED CELL DISTRIBUTION WIDTH 14.4 % (11.5-14.0); SEGMENTED NEUTROPHILS % (AUTO) 85.9 % (42-78); TOTAL CELLS COUNTED % (AUTO) 100 %; WHITE BLOOD COUNT 16.3 10^3/uL (4.0-10.5)
[2020-03-05 19:20] LABS: APPEARANCE,URINE CLOUDY; BILIRUBIN,URINE NEGATIVE (NEGATIVE); COLOR,URINE AMBER; GLUCOSE, URINE 50 mg/dL (NEGATIVE); KETONES,URINE NEGATIVE (NEGATIVE); LEUKOCYTE ESTERASE,URINE MODERATE (NEGATIVE); NITRITE,URINE NEGATIVE (NEGATIVE); PROTEIN,URINE >=500 mg/dL (NEGATIVE); URINE SPECIFIC GRAVITY 1.028; UROBILINOGEN,URINE NEGATIVE mg/dL (<2.0)
[2020-03-05 19:38] LABS: ALKALINE PHOSPHATASE 83 U/L (38-126); ANION GAP 8 (5-19); ASPARTATE AMINO TRANSFERASE 38 U/L (14-36); BILIRUBIN,TOTAL 1.1 mg/dL (0.2-1.3); BLOOD UREA NITROGEN 12 mg/dL (7-20); CALCIUM 9.6 mg/dL (8.4-10.2); CARBON DIOXIDE 28 mmol/L (22-30); CHLORIDE 98 mmol/L (98-107); GLUCOSE 139 mg/dL (75-110)
[2020-03-05 19:39] LABS: TOTAL PROTEIN 8.3 g/dL (6.3-8.2)
--- NOTE | 2020-03-05 21:25 | ER Document Report ---
ED General - General Chief Complaint: Flank Pain Stated Complaint: LEFT FLANK PAIN,NAUSEA Time Seen by Provider: 03/05/20 18:29 Primary Care Provider: RLEL DAWKINS PA-C [Primary Care Provider] - Follow up as needed TRAVEL OUTSIDE OF THE [place] IN LAST 30 DAYS: No - HPI Notes: 44-year-old female history of ovarian cyst rupture with surgical repair without complication presents with many months history of left lower quadrant abdominal pain radiating to left flank worse for 2 days associated with nausea and numerous episodes of nonbilious nonbloody emesis and subjective fever. Patient says that she has never seen a primary doctor or manager roofing regarding the symptoms. Unknown duration, have been going on at least many months possibly longer. Patient endorses having irregular bowel movements with alternating between constipation and loose stools, no acute abnormalities. Patient previously seen in ED for abdominal pain and had narrow terminal ileum, did not follow-up outpatient. Patient denies any measured fever, acute constipation, obstipation, trauma, dizziness, syncope, chest pain, dysuria, urgency, frequency, hearing dysuria, vaginal discharge or abnormal bleeding (currently has a normal menses which was expected), unexplained weight loss, family history, prior endoscopy/colonoscopy, immune compromise, drug use - Related Data Allergies/Adverse Reactions: No Known Allergies Allergy (Verified 03/30/19 10:25) Home Medications: Adderrall Past Medical History - General Information source: Patient, [facility] Records - Social History Smoking Status: Never Smoker Frequency of alcohol use: Occasional Family History: Reviewed & Not Pertinent - Past Medical History Cardiac Medical History: Denies: Hx Atrial Fibrillation, Hx Congestive Heart Failure, Hx Coronary Artery Disease, Hx Heart Attack, Hx Hypercholesterolemia, Hx Hypertension Pulmonary Medical History: Denies: Hx Asthma, Hx Bronchitis, Hx COPD, Hx Pneumonia, Hx Tuberculosis Neurological Medical History: Denies: Hx Cerebrovascular Accident, Hx Migraine, Hx Seizures Endocrine Medical History: Denies: Hx Diabetes Mellitus Type 1, Hx Diabetes Mellitus Type 2 Renal/ Medical History: Reports: Hx Kidney Stones, Hx Ovarian Cysts - x1 right sided. Denies: Hx End Stage Renal Disease, Hx Peritoneal Dialysis GI Medical History: Denies: Hx Gastroesophageal Reflux Disease, Hx Hiatal Hernia, Hx Ulcer Musculoskeletal Medical History: Denies Hx Arthritis Psychiatric Medical History: Denies: Hx Attention Deficit Hyperactivity Disorder, Hx Bipolar Disorder, Hx Depression, Hx Schizophrenia Past Surgical History: Reports: Hx Gynecologic Surgery - ovarian cyst, Hx Orthopedic Surgery - left knee, Hx Tubal Ligation. Denies: Hx Hysterectomy - Immunizations Immunizations up to date: Yes Hx Diphtheria, Pertussis, Tetanus Vaccination: Yes Review of Systems - Review of Systems Notes: REVIEW OF SYSTEMS: CONSTITUTIONAL : + fever, chills, or sweats. EENT: Denies recent cold/sinus symptoms, denies throat pain CARDIOVASCULAR: Denies chest pain, LINDSEY RESPIRATORY: Denies cough, denies shortness of breath. GASTROINTESTINAL: +abdominal pain, +nausea/vomiting. GENITOURINARY: Denies difficulty urinating, painful urination. FEMALE GENITOURINARY: Denies abnormal vaginal bleeding, vaginal discharge. MUSCULOSKELETAL: Denies neck pain, back pain. SKIN: Denies rash or skin lesions. HEMATOLOGIC : Denies easy bruising or bleeding. LYMPHATIC: Denies swollen, enlarged glands. NEUROLOGICAL: Denies headache, denies change in gait. PSYCHIATRIC: Denies anxiety or stress or depression. Physical Exam - Vital signs Vitals: Temp Pulse Resp BP Pulse Ox 98.7 F 81 15 146/82 H 99 03/05/20 17:49 03/05/20 17:49 03/05/20 17:49 03/05/20 17:49 03/05/20 17:49 - Notes Notes: PHYSICAL EXAMINATION: GENERAL: Well-appearing, well-nourished, appears stated age, mildly unc omfortable appearing secondary to abdominal pain but in no acute distress. HEAD: Atraumatic, normocephalic. EYES: Pupils equal round and appropriate constriction, sclera anicteric, conjunctiva are normal. ENT: nares patent, moist mucous membranes. NECK: Normal range of motion, supple without lymphadenopathy LUNGS: Breath sounds clear to auscultation bilaterally and equal. No wheezes rales or rhonchi. HEART: Regular rate and rhythm without murmurs ABDOMEN: Soft, nontender, no guarding, no rebound, no masses, no CVAT EXTREMITIES: Normal range of motion, no pitting or edema. No cyanosis. NEUROLOGICAL: Awake, alert, conversing appropriately, moves all extremities spontaneously. PSYCH: Normal mood, normal affect. SKIN: Warm, Dry, normal turgor, no rashes or lesions noted. Course - Re-evaluation Re-evalutation: 03/05/20 21:23 Patient with chronic abdominal pain now acutely worsened associated with sub jective fever and vomiting. Patient appears mildly uncomfortable but generally very well-appearing and benign abdominal exam, vitals normal aside from mild hypertension likely secondary to pain. Concern for possible underlying ulcerative colitis versus Crohn's versus malignancy possibly now complicated by infection (colitis v. diverticulitis). No urinary or NET APPLICATION ARCHITECT symptoms. Will obtain abdominal pelvic CT with p.o. contrast given help in highlighting colitis versus IBD. Labs significant for leukocytosis but patient not meeting any other sirs criteria. Patient feels greatly improved after morphine and Zofran, will continue to monitor closely pending results of CT. 03/06/20 00:27 Possible ileitis and colitis on CT. Descending and sigmoid colitis matches distribution of patient's pain and given that patient also has leukocytosis will start antibiotics for colitis. Patient has no C. difficile risk factors and no diarrhea. Spoke to patient at length about need for outpatient follow-up with a primary doctor, manager roofing, and the administrative medical director as patient has not seen blanket cutting machine operator in 4 years. Informed her that the symptoms could be produced by IBD or other diagnoses that are only definitively diagnosed on colonoscopy. No current indications for emergent colonoscopy. Patient demonstrated understanding of instructions and states she would make plans to follow-up. I gave patient e xtensive return to ED precautions which she also demonstrated understanding of. Patient given first dose of Cipro Flagyl in ED. Will give paper prescriptions at patient's request as she does not know which pharmacy she would like to go to. Patient ready for discharge. - Vital Signs Vital signs: Temp Pulse Resp BP Pulse Ox 98.1 F 80 20 124/69 97 03/06/20 00:50 03/06/20 00:33 03/06/20 00:33 03/06/20 00:33 03/06/20 00:33 - Laboratory Result Diagrams: 03/05/20 18:45 03/05/20 18:45 Laboratory results interpreted by me: 03/05/20 03/05/20 03/05/20 18:45 18:45 18:45 WBC 16.3 H RDW 14.4 H Lymph % (Auto) 8.6 L Absolute Neuts (auto) 14.0 H Seg Neutrophils % 85.9 H Sodium 134.4 L Glucose 139 H AST 38 H ALT 38 H Total Protein 8.3 H Urine Protein >=500 H Urine Glucose (UA) 50 H Urine Blood LARGE H Ur Leukocyte Esterase MODERATE H Discharge - Discharge Clinical Impression: Colitis Abdominal pain Qualifiers: Abdominal location: left lower quadrant Qualified Code(s): R10.32 - Left lower quadrant pain Leukocytosis Qualifiers: Leukocytosis type: unspecified Qualified Code(s): D72.829 - Elevated white blood cell count, unspecified Disposition: HOME, SELF-CARE Additional Instructions: Ciprofloxacin You have been given an antibacterial agent, ciprofloxacin (Cipro). This medicine is not related to the penicillins, sulfas, cephalosporins, or tetracyclines. It is often given to patients who are allergic to these drugs. It has been chosen for you either because other drugs are not appropriate, or because of the nature of your problem. Cipro should not be taken with antacids, as these can decrease its effectiveness. It can be taken without regard to meals. CIPRO SHOULD NOT BE TAKEN BY CHILDREN, NURSING WOMEN, OR WOMEN. Although Cipro is usually well-tolerated, common side effects can include nausea and diarrhea. Contact your doctor if you experience any unusual symptoms while on this medication, such as joint pain or swelling, shortness of breath, wheezing, faintness, or hives. Metronidazole Metronidazole (Flagyl) has been prescribed. This medication is used to kill a type of bacteria called anaerobes, and protozoan parasites such as trichomonas and Giardia. Flagyl often causes a metallic taste in the mouth and mild nausea. Do not use alcohol in any form with Flagyl (including alcohol in medication elixirs). Flagyl interacts with alcohol to cause flushing, palpitations, headache, stomach cramps, and vomiting. Do not use Flagyl if you are taking Antabuse (disulfiram). Call the doctor at once if you develop rash, shortness of breath, itching, or lightheadedness. Abdominal Pain There are many causes of abdominal pain. Pain can mean a serious problem requiring surgery (such as appendicitis). It can also be an innocent problem that goes away on its own (such as a viral infection). Often, time must pass to determine the cause of pain. The physician does not feel that hospitalization is necessary, at present. Things may change within the next 24 hours. Call the doctor or come back for re-examination if any problems occur, such as: (1) Pain that becomes more severe, steady, or becomes concentrated in one specific area. Also, pain that is more severe with movement or coughing. (2) Vomiting that persists or becomes more frequent. (3) Blood in the vomitus, urine, or bowel movements. Blood in the stool may have a tarry or black appearance. (4) Shaking chills or fever greater than 100 degrees F. (5) The abdomen becomes more distended or swollen. (6) Bowel movements cease. (7) Failure to improve as expected. Colitis, Nonspecific Colitis is an inflammatory disease of the large intestine which affects the lining of the bowel. The cause is uncertain, though it is often caused by an infection. In some cases, the symptoms resolve and can return again in the future. Colitis is characterized by abdominal pain, often nausea and vomiting, and either diarrhea or difficulty with bowel movements. Sometimes blood will be present in the bowel movements. Fever is often present as well. Milder cases of colitis can be managed as an outpatient with medications for nausea and vomiting and pain, oral fluid therapy, and perhaps antibiotics, if a bacterial origin is suspected. Antidiarrhea medicine should usually be avoided in colitis. If you have increasing abdominal pain, repeated vomiting, fever, rectal bleeding, or worsening diarrhea, you should return for re-evaluation. Follow-up with a primary doctor, manager roofing, and administrative medical director within 2 weeks. Return to the emergency department immediately if you have any worsening pain, dizziness, fainting, weakness, vomiting and unable to keep down fluids by mouth, bloody stool, black stool, or any other worsening or alarming symptoms. Also return if you do not feel improved after 2 days on antibiotics. blood pressure was high at 146/82, discussed this with your primary doctor as untreated blood pressure is a risk factor for stroke, heart attack, and . Your sodium was mildly low at 134, also discussed this with your primary doctor. Prescriptions: Acetaminophen with Codeine [Tylenol #3 Tablet] 1 each PO Q6HP PRN #6 tablet PRN Reason: Ciprofloxacin HCl [Cipro 500 mg Tablet] 500 mg PO BID 7 Days #14 tablet Metronidazole [Flagyl 500 mg Tablet] 500 mg PO Q8H 7 Days #21 tablet Referrals: DAQUAN BOCANEGRA MD [ACTIVE STAFF] - Follow up as needed WHITNEY WRIGHT MD [ACTIVE STAFF] - Follow up as needed [facility] [Provider Group] - Follow up as needed
--- NOTE | 2020-03-05 23:56 | RADIOLOGY REPORT (SQ) ---
EXAM DESCRIPTION: CT ABDOMEN PELVIS WITH IV CONTRAST COMPLETED DATE/TME: 03/05/2020 00:00 CLINICAL HISTORY: LLQ pain COMPARISON: 06/12/2018 TECHNIQUE: CT of the abdomen and pelvis performed following IV administration of 100.5 mL Omnipaque 350. FINDINGS: Lung Bases: The visualized lung bases are clear. Bones: No destructive bone lesions identified. Abdomen: Liver: The liver has normal size and diffusely decreased density. No intrahepatic biliary dilatation. Gallbladder: No calcified gallstones. Spleen, Pancreas, and Adrenal Glands: Single coarse benign calcification spleen. Pancreas and adrenal glands are unremarkable. Kidneys: No hydronephrosis or obstructing calculus. Vasculature: The aorta and IVC have normal caliber and position. The portal vein is patent. The proximal visceral and renal arteries are patent. Stomach: Small hiatal hernia. Other: No free intraperitoneal air. No free fluid or lymphadenopathy. Pelvis: Bladder: Urinary bladder is unremarkable. Bowel: Mildly prominent loops of proximal small bowel without transition point identified. Contrast identified in the majority of the bowel. Mild wall thickening of the descending and sigmoid colon which is nondistended. Scattered diverticula of the colon. Appendix: Normal appendix. Pelvis: Uterus is not enlarged. IMPRESSION: 1. Mildly prominent loops of proximal small bowel without transition point. Findings most consistent with enteritis/ileitis. 2. Mild wall thickening of the descending and sigmoid colon may be related to under distention however mild nonspecific colitis could produce this appearance. 3. Small hiatal hernia. 4. Diverticulosis without evidence of acute diverticulitis. 5. Hepatic steatosis. This exam was performed according to our departmental dose-optimization program, which includes automated exposure control, adjustment of the mA and/or kV according to patient size and/or use of iterative reconstruction technique.
[2020-03-06] MEDS ORDERED: METRONIDAZOLE 500 MG TABLET PO ONE (00:18)
[2020-03-06] MEDS ORDERED: CIPROFLOXACIN HCL 500 MG TABLET PO ONE (00:18)
[2020-03-06 00:36] VITALS: BP 124/69
== END 2020-03-06 00:45 | disposition home or self-care (01) ==
LOC: ER 17:34
DX: K52.9 Noninfective gastroenteritis and colitis, unspecified (principal); R10.32 Left lower quadrant pain; D72.829 Elevated white blood cell count, unspecified; R11.2 Nausea with vomiting, unspecified; Z87.442 Personal history of urinary calculi
CPT/HCPCS: 99284; 96374; 96375; 36415; 83690; 85025; 81025; 80053; 81001; 74177; J3490 ×2; J2270; J2405

== ENCOUNTER 2020-04-29 23:14 | Emergency (ER) | payer MEDICAID ==
[2020-04-30] MEDS ORDERED: NORMAL SALINE 1000 ML 1,000 ML IV ONE (00:52)
[2020-04-30] MEDS ORDERED: ONDANSETRON HCL INJ/PF 4 MG/2 ML SDV IV ONE (00:52)
[2020-04-30] MEDS ORDERED: FENTANYL CITRATE INJ/PF 100 MCG/2 ML AMPUL IV ONE (00:53)
--- NOTE | 2020-04-30 00:55 | ER Document Report ---
ED GI/ - General Chief Complaint: Abdominal Pain Stated Complaint: ABDOMINAL PAIN,VOMITING,NAUSEA Time Seen by Provider: 04/30/20 00:51 Primary Care Provider: RELL DAWKINS PA-C [Primary Care Provider] - Follow up as needed Mode of Arrival: Ambulatory Notes: Patient presents complaining of nausea vomiting that started today. Patient states she is vomited more than 10 times. Patient reports left flank and left lower quadrant tenderness. Patient reports starting her menstrual cycle yest erday and states she typically has pain like this when she has her menses. Patient denies any urinary symptoms. Patient denies any fever. TRAVEL OUTSIDE OF THE [place] IN LAST 30 DAYS: No - HPI Patient complains to provider of: Abdominal pain, Flank pain, Vomiting Onset: This evening Timing/Duration: Persistent Quality of pain: Achy Pain Level: 3 Location: LLQ, Left flank Vaginal bleeding (Compared to normal period): Similar Menstrual period history: denies: Associated symptoms: Nausea, Vomiting. denies: Constipation, Diarrhea, Dysuria, Fever, Loss of appetite, Urinary hesitancy, Urinary frequency, Urinary retention, Urinary urgency Exacerbated by: Denies Relieved by: Denies Similar symptoms previously: Yes - Monthly with her menses Recently seen / treated by doctor: No - Related Data Allergies/Adverse Reactions: No Known Allergies Allergy (Verified 03/30/19 10:25) Past Medical History - General Information source: Patient - Social History Smoking Status: Never Smoker Frequency of alcohol use: Occasional Drug Abuse: None Occupation: none Lives with: Family Family History: Reviewed & Not Pertinent Endocrine Medical History: Denies: Hx Diabetes Mellitus Type 1, Hx Diabetes Mellitus Type 2 Renal/ Medical History: Reports: Hx Kidney Stones, Hx Ovarian Cysts - x1 right sided GI Medical History: Denies: Hx Gastroesophageal Reflux Disease, Hx Hiatal Hernia, Hx Ulcer Musculoskeletal Medical History: Denies Hx Arthritis Psychiatric Medical History: Reports: Hx Attention Deficit Hyperactivity Disorder Past Surgical History: Reports: Hx Gynecologic Surgery - ovarian cyst, Hx Orthopedic Surgery - left knee, Hx Tubal Ligation. Denies: Hx Hysterectomy - Immunizations Immunizations up to date: Yes Hx Diphtheria, Pertussis, Tetanus Vaccination: Yes Review of Systems - Review of Systems Constitutional: No symptoms reported. denies: Fever EENT: No symptoms reported Cardiovascular: No symptoms reported. denies: Dizziness, Lightheaded Respiratory: No symptoms reported. denies: Cough Gastrointestinal: Abdominal pain, Nausea, Vomiting. denies: Diarrhea Genitourinary: Flank pain. denies: Dysuria Female Genitourinary: No symptoms reported, Vaginal bleeding Musculoskeletal: Back pain Skin: No symptoms reported Hematologic/Lymphatic: No symptoms reported Neurological/Psychological: No symptoms reported Physical Exam - Vital signs Vitals: Temp Pulse Resp BP Pulse Ox 97.4 F 84 18 154/101 H 99 04/29/20 23:20 04/29/20 23:20 04/29/20 23:20 04/29/20 23:20 04/29/20 23:20 - General General appearance: Alert In distress: Mild - HEENT Head: Normocephalic - Respiratory Respiratory status: No respiratory distress - Abdominal Inspection: Morbidly Obese Tenderness: Tender - LLQ - Back Back: CVA tenderness - left - Extremities General upper extremity: Normal inspection, Normal strength General lower extremity: Normal inspection, Normal strength - Neurological Neuro grossly intact: Yes Cognition: Normal Melecio Coma Scale Eye Opening: Spontaneous Gepp Coma Scale Verbal: Oriented Melecio Coma Scale Motor: Obeys Commands Melecio Coma Scale Total: 15 - Psychological Associated symptoms: Normal affect, Normal mood - Skin Skin Temperature: Warm Skin Moisture: Dry Skin Color: Normal Course - Re-evaluation Re-evalutation: 04/30/20 02:19 Patient is still vomiting despite initial Zofran dose, additional antiemetic ordered at this time. 04/30/20 03:49 Patient reports pain is manageable although she feels as though the nausea started to come back. Patient is requesting additional nausea medication at this time. Patient's left flank pain is resolved and continues with mild left- sided abdominal tenderness. Patient states this pain is typical of what she deals with every month with her menses. Patient states that when he gets severe it makes her nauseous and then she has difficulty taking medicine to control the pain which typically prompts her to come into the emergency department. Patient states this is typical of episode she has had previously. 04/30/20 04:31 Patient does have mild leukocytosis with UTI. Patient denies any UTI symptoms although states she frequently has back pain for which she treats at home with Motrin. Urine culture will be obtained at this time. Patient clinically looks improved at this time and is feeling much better. Good return precautions discussed with patient. Patient verbalized understanding and is agreeable with discharge plan of care. - Vital Signs Vital signs: Temp Pulse Resp BP Pulse Ox 98.2 F 77 14 159/93 H 100 04/30/20 04:55 04/30/20 04:55 04/30/20 04:55 04/30/20 04:55 04/30/20 04:55 - Laboratory Result Diagrams: 04/30/20 01:19 04/30/20 01:19 Laboratory results interpreted by me: 04/30/20 04/30/20 04/30/20 01:19 01:19 03:43 WBC 11.9 H Lymph % (Auto) 7.5 L Absolute Neuts (auto) 10.6 H Seg Neutrophils % 89.2 H Glucose 174 H AST 42 H ALT 42 H Urine Protein 100 H Urine Ketones TRACE H Urine Blood LARGE H Ur Leukocyte Esterase MODERATE H Labs- All tests 24 hr 04/30/20 04/30/20 04/30/20 01:19 01:19 01:19 WBC 11.9 H RBC 4.50 Hgb 12.7 Hct 37.6 MCV 84 MCH 28.2 MCHC 33.8 RDW 13.7 Plt Count 203 Lymph % (Auto) 7.5 L Carter % (Auto) 3.1 Eos % (Auto) 0.1 Baso % (Auto) 0.1 Absolute Neuts (auto) 10.6 H Absolute Lymphs (auto) 0.9 Absolute Monos (auto) 0.4 Absolute Eos (auto) 0.0 Absolute Basos (auto) 0.0 Seg Neutrophils % 89.2 H Sodium 139.8 Potassium 4.0 Chloride 104 Carbon Dioxide 24 Anion Gap 12 BUN 9 Creatinine 0.56 Est GFR ( Amer) > 60 Est GFR (MDRD) Non-Af > 60 Glucose 174 H Calcium 9.2 Total Bilirubin 0.9 Direct Bilirubin 0.2 Neonat Total Bilirubin Not Reportable Neonat Direct Bilirubin Not Reportable Neonat Indirect Bili Not Reportable AST 42 H ALT 42 H Alkaline Phosphatase 75 Total Protein 7.5 Albumin 4.6 Lipase 36.5 Serum HCG, Qual NEGATIVE Urine Color Urine Appearance Urine pH Ur Specific [place] Urine Protein Urine Glucose (UA) Urine Ketones Urine Blood Urine Nitrite Urine Bilirubin Urine Urobilinogen Ur Leukocyte Esterase Urine WBC (Auto) Urine RBC (Auto) Squamous Epi Cells Auto Urine Ascorbic Acid 04/30/20 03:43 WBC RBC Hgb Hct MCV MCH MCHC RDW Plt Count Lymph % (Auto) Carter % (Auto) Eos % (Auto) Baso % (Auto) Absolute Neuts (auto) Absolute Lymphs (auto) Absolute Monos (auto) Absolute Eos (auto) Absolute Basos (auto) Seg Neutrophils % Sodium Potassium Chloride Carbon Dioxide Anion Gap BUN Creatinine Est GFR ( Amer) Est GFR (MDRD) Non-Af Glucose Calcium Total Bilirubin Direct Bilirubin Neonat Total Bilirubin Neonat Direct Bilirubin Neonat Indirect Bili AST ALT Alkaline Phosphatase Total Protein Albumin Lipase Serum HCG, Qual Urine Color RED Urine Appearance SLIGHTLY-CLOUDY Urine pH 7.0 Ur Specific [place] > 1.060 Urine Protein 100 H Urine Glucose (UA) NEGATIVE Urine Ketones TRACE H Urine Blood LARGE H Urine Nitrite NEGATIVE Urine Bilirubin NEGATIVE Urine Urobilinogen NEGATIVE Ur Leukocyte Esterase MODERATE H Urine WBC (Auto) 62 Urine RBC (Auto) >182 Squamous Epi Cells Auto 1 Urine Ascorbic Acid NEGATIVE - Diagnostic Test Radiology reviewed: Reports reviewed Discharge - Discharge Clinical Impression: Dysmenorrhea UTI (urinary tract infection) Qualifiers: Urinary tract infection type: site unspecified Hematuria presence: with hematuria Qualified Code(s): N39.0 - Urinary tract infection, site not specified Nausea and vomiting Qualifiers: Vomiting type: unspecified Vomiting Intractability: non-intractable Qualified Code(s): R11.2 - Nausea with vomiting, unspecified Condition: Stable Disposition: HOME, SELF-CARE Instructions: Abdominal Pain ([facility]), Dysmenorrhea ([facility]), Intravenous (IV) Fluids ([facility]), Urinary Tract Infection ([facility]), Vomiting ([facility]) Additional Instructions: Return immediately for any new or worsening symptoms Followup with your primary care provider, call tomorrow to make a followup appointment Urine culture is pending, we will call if you need any different treatment Prescriptions: Cefdinir 300 mg PO BID #20 capsule Naproxen [Naprosyn 250 Nmg Tablet] 1 tab PO BID #14 tablet Ondansetron [Zofran Odt 4 mg Tablet] 1 tab PO Q6H #15 tab.ervindis Referrals: RELL DAWKINS PA-C [Primary Care Provider] - Follow up as needed
[2020-04-30] MEDS ORDERED: ONDANSETRON 4 MG TAB.RAPDIS PO ONE (01:05)
[2020-04-30 01:42] LABS: ABSOLUTE LYMPHOCYTES (AUTO) 0.9 10^3/uL (0.5-4.7); ABSOLUTE MONOCYTES (AUTO) 0.4 10^3/uL (0.1-1.4); ABSOLUTE NEUT (AUTO) 10.6 10^3/uL (1.7-8.2); BASOPHILS % (AUTO) 0.1 % (0-2); EOSINOPHILS % (AUTO) 0.1 % (0-6); HEMATOCRIT 37.6 % (36.0-47.0); HEMOGLOBIN 12.7 g/dL (12.0-15.5); LYMPHOCYTES % (AUTO) 7.5 % (13-45); MEAN CORPUSCULAR HEMOGLOBIN 28.2 pg (27.0-33.4); MEAN CORPUSCULAR HGB CONC 33.8 g/dL (32.0-36.0); MEAN CORPUSCULAR VOLUME 84 fl (80-97); MONOCYTES % (AUTO) 3.1 % (3-13); PLATELET COUNT 203 10^3/uL (150-450); RED CELL DISTRIBUTION WIDTH 13.7 % (11.5-14.0); SEGMENTED NEUTROPHILS % (AUTO) 89.2 % (42-78); TOTAL CELLS COUNTED % (AUTO) 100 %; WHITE BLOOD COUNT 11.9 10^3/uL (4.0-10.5)
[2020-04-30 02:07] LABS: ALBUMIN 4.6 g/dL (3.5-5.0); ALKALINE PHOSPHATASE 75 U/L (38-126); ANION GAP 12 (5-19); ASPARTATE AMINO TRANSFERASE 42 U/L (14-36); BILIRUBIN,DIRECT 0.2 mg/dL (0.0-0.4); BILIRUBIN,TOTAL 0.9 mg/dL (0.2-1.3); BLOOD UREA NITROGEN 9 mg/dL (7-20); CALCIUM 9.2 mg/dL (8.4-10.2); CARBON DIOXIDE 24 mmol/L (22-30); CHLORIDE 104 mmol/L (98-107); GLUCOSE 174 mg/dL (75-110); TOTAL PROTEIN 7.5 g/dL (6.3-8.2)
[2020-04-30] MEDS ORDERED: PROCHLORPERAZINE EDISYLATE INJ 10 MG/2 ML VIAL IV ONE ×2 (02:19→03:48)
[2020-04-30] MEDS ORDERED: DIPHENHYDRAMINE HCL 50 MG/ML VIAL IV ONE (02:19)
[2020-04-30] MEDS ORDERED: ONDANSETRON HCL INJ/PF 4 MG/2 ML SDV ONE (02:22)
--- NOTE | 2020-04-30 03:41 | RADIOLOGY REPORT (SQ) ---
CLINICAL INDICATION: LLQ, L flank pain. . TECHNIQUE: Contrast enhanced spiral axial CT imaging was obtained of the abdomen and pelvis with multiplanar reconstructions. This exam was performed according to our departmental dose-optimization program, which includes automated exposure control, adjustment of the mA and/or kV according to patient size and/or use of iterative reconstruction techniques. Additional delayed phase imaging COMPARISON: March 05, 2020. CORRELATION: None. FINDINGS: Abdomen: The lung bases are grossly clear. The heart is of normal size. No evidence of pleural or pericardial fluid. The liver is fatty infiltrated, similar to prior. Largest at 20.4 cm craniocaudad.. Focal fatty sparing in the gallbladder fossa. The gallbladder is nondistended without inflammatory change. The pancreas is unremarkable. The spleen demonstrates coarse calcification. The adrenals are unremarkable. The kidneys appear grossly normal without evidence of urolithiasis or hydronephrosis. There is no evidence of free air. No free fluid. No bulky adenopathy. Abdominal aorta is nonaneurysmal. Pelvis: The bowel is nonobstructed. The bowel is unopacified with oral contrast. Pelvic contents are unremarkable. The appendix is normal. Postsurgical change from tubal ligation Visualized bones are unremarkable. IMPRESSION: Artifact from the patient's arms. No acute intra-abdominal process is identified. Hepatic steatosis is again seen. The cause of the patient's left flank and left lower quadrant pain is not identified on this examination..
[2020-04-30] MEDS ORDERED: KETOROLAC TROMETHAMINE INJ/PF 30 MG/1 ML SDV IV ONE (03:48)
[2020-04-30 03:57] LABS: APPEARANCE,URINE SLIGHTLY-CLOUDY; BILIRUBIN,URINE NEGATIVE (NEGATIVE); COLOR,URINE RED; GLUCOSE, URINE NEGATIVE (NEGATIVE); KETONES,URINE TRACE mg/dL (NEGATIVE); LEUKOCYTE ESTERASE,URINE MODERATE (NEGATIVE); NITRITE,URINE NEGATIVE (NEGATIVE); PROTEIN,URINE 100 mg/dL (NEGATIVE); UROBILINOGEN,URINE NEGATIVE mg/dL (<2.0)
[2020-04-30 03:59] LABS: URINE SPECIFIC GRAVITY > 1.060
[2020-04-30] MEDS ORDERED: CEFTRIAXONE 1 GM/D5W RTU 1 GM/50 ML RTUPB IV ONE (04:13)
[2020-04-30 04:55] VITALS: BP 159/93
== END 2020-04-30 04:56 | disposition home or self-care (01) ==
LOC: ER 23:14
DX: R11.2 Nausea with vomiting, unspecified (principal); R10.32 Left lower quadrant pain; N39.0 Urinary tract infection, site not specified; N93.8 Other specified abnormal uterine and vaginal bleeding
CPT/HCPCS: 96376; 99285; 96361; 96375; 96365; 36415; 87086; 83690; 84703; 85025; 80053; 81001; 74177; J1200; S0119; J3010; J1885; J0780; J7030; J0696

== ENCOUNTER 2020-05-15 07:57 | Day surgery (SDC) | payer MEDICAID ==
[~2020-05-15 07:57] MED LIST changes: -DIPHENHYDRAMINE HCL 50 MG/ML VIAL ONE; -EPINEPHRINE INJ 1 MG/10 ML DISP.SYRIN ONE; -FLUMAZENIL INJ 0.5 MG/5 ML VIAL IV ONE; -GLUCAGON,HUMAN RECOMB 1 MG INJ ONE; -NALOXONE HCL INJ/PF 0.4 MG/1 ML SDV ONE; -ONDANSETRON HCL INJ/PF 4 MG/2 ML SDV ONE; +PROPOFOL INJ 200 MG/20 ML VIAL IV ONE
--- NOTE | 2020-05-15 09:41 | Operative Report ---
Operative Report DATE OF SURGERY: 05/15/20 Operative Report: The risk, benefits and alternatives of the procedure including the risk of bleeding, perforation requiring surgery have been explained to the patient in detail and informed consent has been obtained. Patient is placed in left, lateral decubital position. Timeout was called. Propofol medication is administered. Rectal examination is done which did not reveal any masses, tears or fissures. An Olympus videoscope is introduced into the patient's rectum. Scope was then carefully advanced all the way to the cecum. Cecum was identified by the usual anatomical landmarks including the ileocecal valve as well as the appendiceal office. Photodocumentation is obtained. Scope was then sequentially pulled back via the various segments of the colon including the ascending colon, hepatic flexure, transverse colon, splenic flexure, descending colon and finally into the rectosigmoid portions of the colon. Retroflexion maneuver is performed. The risks benefits and alternatives of the procedure explained to the patient in detail and informed consent is obtained .A GIF Olympus video scope was inserted into the patient's mouth and hypopharynx, the esophagus is identified intubated and insufflated, the scope was then advanced through the esophagus stomach and duodenum, retroflexion maneuver is done, the esophagus stomach and first and second portions of the duodenum examined PREOPERATIVE DIAGNOSIS: Change of bowel habits. Gastroesophageal reflux disease POSTOPERATIVE DIAGNOSIS: Terminal ileum biopsy rule out Crohn's. Internal hemorrhoids. Gastritis status post biopsy. Esophagitis status post biopsy. Biopsy obtained at the distal EG junction for possible Schatzki's ring. Hiatal hernia. Possible rings and furrows in the esophagus biopsy in the proximal midportion to rule out eosinophilic esophagitis OPERATION: Colonoscopy with biopsy. EGD with biopsy SURGEON: DAQUAN BOCANEGRA ANESTHESIA: LMAC TISSUE REMOVED OR ALTERED: As noted above. COMPLICATIONS: None. ESTIMATED BLOOD LOSS: None. INTRAOPERATIVE FINDINGS: As noted above. PROCEDURE: Patient tolerated the procedure well. No immediate postprocedure complications are noted. Patient is discharged in good condition. Discharge date 05/15/2020. Discharge diet: Regular. Discharge activity: Regular. 2 to 3-week follow-up to discuss findings. Patient is instructed to call the office or proceed to the emergency room should there be any further problems or questions. Wait on the pathology. 10-year surveillance if biopsies are negative
[2020-05-15 10:10] VITALS: BP 151/94
== END 2020-05-15 10:15 | disposition home or self-care (01) ==
LOC: END 07:57
PROVIDERS: ATTEND Internal Medicine Gastroenterology
DX: K50.00 Crohn's disease of small intestine without complications (principal); K29.70 Gastritis, unspecified, without bleeding; K29.80 Duodenitis without bleeding; K64.8 Other hemorrhoids; K44.9 Diaphragmatic hernia without obstruction or gangrene; K21.00 Gastro-esophageal reflux disease with esophagitis, without bleeding; Z80.0 Family history of malignant neoplasm of digestive organs; F17.200 Nicotine dependence, unspecified, uncomplicated; Z68.35 Body mass index [BMI] 35.0-35.9, adult; Z79.1 Long term (current) use of non-steroidal anti-inflammatories (NSAID); Z79.899 Other long term (current) drug therapy; Z03.818 Encounter for observation for suspected exposure to other biological agents ruled out
CPT/HCPCS: 43239; 45380; 87635; 88342 ×2; 88305 ×2; 88312 ×2; J2704; C9803; 813

== ENCOUNTER 2020-06-25 09:40 | Emergency (ER) | payer MEDICAID ==
[2020-06-25] MEDS ORDERED: ONDANSETRON HCL INJ/PF 4 MG/2 ML SDV IV ONE (09:58)
[2020-06-25] MEDS ORDERED: METOCLOPRAMIDE HCL INJ/PF 10 MG/2 ML SDV IV ONE (10:14)
[2020-06-25] MEDS ORDERED: NORMAL SALINE 1000 ML 1,000 ML IV ONE (10:14)
[2020-06-25] MEDS ORDERED: DIPHENHYDRAMINE HCL 50 MG/ML VIAL IV ONE (10:14)
[2020-06-25 10:27] LABS: ABSOLUTE LYMPHOCYTES (AUTO) 0.7 10^3/uL (0.5-4.7); ABSOLUTE MONOCYTES (AUTO) 0.3 10^3/uL (0.1-1.4); ABSOLUTE NEUT (AUTO) 7.6 10^3/uL (1.7-8.2); BASOPHILS % (AUTO) 0.1 % (0-2); HEMATOCRIT 36.6 % (36.0-47.0); HEMOGLOBIN 12.3 g/dL (12.0-15.5); LYMPHOCYTES % (AUTO) 8.6 % (13-45); MEAN CORPUSCULAR HEMOGLOBIN 27.9 pg (27.0-33.4); MEAN CORPUSCULAR HGB CONC 33.6 g/dL (32.0-36.0); MEAN CORPUSCULAR VOLUME 83 fl (80-97); MONOCYTES % (AUTO) 3.8 % (3-13); PLATELET COUNT 241 10^3/uL (150-450); RED BLOOD COUNT 4.41 10^6/uL (3.72-5.28); RED CELL DISTRIBUTION WIDTH 14.6 % (11.5-14.0); SEGMENTED NEUTROPHILS % (AUTO) 87.5 % (42-78); TOTAL CELLS COUNTED % (AUTO) 100 %; WHITE BLOOD COUNT 8.6 10^3/uL (4.0-10.5)
[2020-06-25] MEDS ORDERED: FAMOTIDINE INJ/PF 20 MG/2 ML SDV IV ONE (10:30)
[2020-06-25] MEDS ORDERED: MORPHINE SULFATE 10 MG/ML INJ IV ONE (10:30)
[2020-06-25 10:49] LABS: ALBUMIN 4.9 g/dL (3.5-5.0); ALKALINE PHOSPHATASE 74 U/L (38-126); ANION GAP 16 (5-19); ASPARTATE AMINO TRANSFERASE 36 U/L (14-36); BILIRUBIN,DIRECT 0.1 mg/dL (0.0-0.4); BILIRUBIN,TOTAL 0.9 mg/dL (0.2-1.3); BLOOD UREA NITROGEN 9 mg/dL (7-20); CARBON DIOXIDE 24 mmol/L (22-30); CHLORIDE 97 mmol/L (98-107); GLUCOSE 177 mg/dL (75-110); POTASSIUM 3.4 mmol/L (3.6-5.0); TOTAL PROTEIN 8.2 g/dL (6.3-8.2)
[2020-06-25 12:42] LABS: APPEARANCE,URINE CLEAR; BILIRUBIN,URINE NEGATIVE (NEGATIVE); COLOR,URINE YELLOW; GLUCOSE, URINE NEGATIVE (NEGATIVE); KETONES,URINE NEGATIVE (NEGATIVE); PROTEIN,URINE 100 mg/dL (NEGATIVE); URINE SPECIFIC GRAVITY 1.019; UROBILINOGEN,URINE NEGATIVE mg/dL (<2.0)
--- NOTE | 2020-06-25 13:15 | ER Document Report ---
[facility] GI/ - General Chief Complaint: Vomiting Stated Complaint: VOMITING,CHILLS Time Seen by Provider: 06/25/20 09:57 Primary Care Provider: MARU KNOX FNP [Primary Care Provider] - Follow up in 3-5 days TRAVEL OUTSIDE OF THE [place] IN LAST 30 DAYS: No - HPI Notes: 44-year-old female to the emergency department with complaints of nausea vomiting and generalized abdominal pain that began last night and has persisted until today. She states that usually she has some nausea and vomiting when she has her period but usually it resolves itself. She states she got her menstrual cycle yesterday. She denies any fevers or chills. She denies any back pain. She denies any urinary symptoms. Denies any blood in her vomit. She states that it is just been profuse and she cannot seem to get it to stop. She denies any known COVID-19 contacts. She denies any sore throat, loss of taste or smell. - Related Data Allergies/Adverse Reactions: No Known Allergies Allergy (Verified 06/25/20 09:59) Past Medical History - General Information source: Patient - Social History Smoking Status: Never Smoker Chew tobacco use (# tins/day): No Frequency of alcohol use: None Drug Abuse: None Family History: Reviewed & Not Pertinent Patient has homicidal ideation: No - Past Medical History Cardiac Medical History: Denies: Hx Atrial Fibrillation, Hx Congestive Heart Failure, Hx Coronary Artery Disease, Hx Heart Attack, Hx Hypercholesterolemia, Hx Hypertension Pulmonary Medical History: Denies: Hx Asthma, Hx Bronchitis, Hx COPD, Hx Pneumonia, Hx Tuberculosis Neurological Medical History: Denies: Hx Cerebrovascular Accident, Hx Migraine, Hx Seizures Endocrine Medical History: Denies: Hx Diabetes Mellitus Type 1, Hx Diabetes Mellitus Type 2 Renal/ Medical History: Reports: Hx Kidney Stones, Hx Ovarian Cysts - x1 right sided. Denies: Hx End Stage Renal Disease, Hx Peritoneal Dialysis GI Medical History: Denies: Hx Gastroesophageal Reflux Disease, Hx Hiatal Hernia, Hx Ulcer Musculoskeletal Medical History: Denies Hx Arthritis Psychiatric Medical History: Reports: Hx Attention Deficit Hyperactivity Disorder Denies: Hx Bipolar Disorder, Hx Depression, Hx Schizophrenia Past Surgical History: Reports: Hx Gynecologic Surgery - ovarian cyst, Hx Orthopedic Surgery - left knee, Hx Tubal Ligation. Denies: Hx Hysterectomy - Immunizations Immunizations up to date: Yes Hx Diphtheria, Pertussis, Tetanus Vaccination: Yes Review of Systems - Review of Systems Constitutional: denies: Chills, Fever EENT: No symptoms reported Cardiovascular: denies: Chest pain, Palpitations, Orthopnea, Syncope, Dizziness, Lightheaded Respiratory: denies: Cough, Short of breath Gastrointestinal: Abdominal pain, Nausea, Vomiting. denies: Diarrhea Genitourinary: denies: Frequency, Flank pain Female Genitourinary: See HPI, Vaginal bleeding Musculoskeletal: No symptoms reported Skin: No symptoms reported Hematologic/Lymphatic: No symptoms reported Neurological/Psychological: No symptoms reported -: Yes All other systems reviewed and negative Physical Exam - Vital signs Vitals: Temp Pulse Resp BP Pulse Ox 98.8 F 92 20 149/94 H 98 06/25/20 09:50 06/25/20 09:50 06/25/20 09:50 06/25/20 09:50 06/25/20 09:50 Interpretation: Normal Notes: PHYSICAL EXAMINATION: GENERAL: Patient is actively vomiting upon initial evaluation. She is mildly distressed. HEAD: Atraumatic, normocephalic. EYES: Pupils equal round and reactive to light, extraocular movements intact, sclera anicteric, conjunctiva are normal. ENT: nares patent, oropharynx clear without exudates. Moist mucous membranes. NECK: Normal range of motion, supple without lymphadenopathy LUNGS: Breath sounds clear to auscultation bilaterally and equal. No wheezes rales or rhonchi. HEART: Regular rate and rhythm without murmurs ABDOMEN: Soft, mildly tender throughout with no focal tenderness to palpation. Normoactive bowel sounds. There is no tenderness to palpation to McBurney's point and no Adorno sign. No guarding, no rebound. No masses appreciated. No CVA tenderness EXTREMITIES: Normal range of motion, no pitting or edema. No cyanosis. NEUROLOGICAL: No focal neurological deficits. Moves all extremities spontaneously and on command. PSYCH: Normal mood, normal affect. SKIN: Warm, Dry, normal turgor, no rashes or lesions noted. Course - Re-evaluation Re-evalutation: Impression: Nausea vomiting, generalized abdominal pain. Patient is significantly improved since she is received medicine, her repeat abdominal exam reveals no tenderness to palpation.. She states her abdominal pain is a lot better. Her labs are very reassuring. We will have her follow-up outpatient with primary care and [facility]. Patient agrees with the plan. - Vital Signs Vital signs: Temp Pulse Resp BP Pulse Ox 98.5 F 81 18 189/92 H 97 06/25/20 13:46 06/25/20 13:46 06/25/20 13:46 06/25/20 13:46 06/25/20 13:46 - Laboratory Result Diagrams: 06/25/20 10:03 06/25/20 10:03 Laboratory results interpreted by me: 06/25/20 06/25/20 06/25/20 10:03 10:03 12:05 RDW 14.6 H Lymph % (Auto) 8.6 L Seg Neutrophils % 87.5 H Potassium 3.4 L Chloride 97 L Glucose 177 H ALT 40 H Urine Protein 100 H Urine Blood LARGE H Leukocyte Esterase Rfl TRACE H Discharge - Discharge Clinical Impression: Generalized abdominal pain Nausea & vomiting Qualifiers: Vomiting type: unspecified Vomiting Intractability: non-intractable Qualified Code(s): R11.2 - Nausea with vomiting, unspecified Condition: Stable Disposition: HOME, SELF-CARE Instructions: Abdominal Pain ([facility]), Vomiting ([facility]) Additional Instructions: Take medicines as prescribed. Follow-up with your primary care and your GI specialist without fail. Return if worsening symptoms such as intractable vomiting, intractable pain, fevers, chest pain, shortness of breath, any other concerns. Prescriptions: Sucralfate [Carafate Susp 1 Gm/10 Ml Udcup] 1 gm PO QID #420 ml Promethazine HCl [Phenergan 25 mg Supp.rect] 1 supp KS Q6H #12 supp.rect Forms: Return to Work Referrals: MARU KNOX FNP [Primary Care Provider] - Follow up in 3-5 days
[2020-06-25 13:52] VITALS: BP 189/92
== END 2020-06-25 13:53 | disposition home or self-care (01) ==
LOC: ER 09:40
DX: R10.84 Generalized abdominal pain (principal); R11.2 Nausea with vomiting, unspecified
CPT/HCPCS: 99284; 96361; 96374; 96375; 36415; 87086; 83690; 83735; 85025; 80053; 81001; J1200; J2765; J2270; J2405; J7030; S0028